=== PATIENT | female | born 1950 | race Caucasian/White ===

== ENCOUNTER 2017-12-13 09:55 | Inpatient (IN) ==
[2017-12-13] MEDS ORDERED: Ondansetron 4 MG/2 ML VIAL IVP ONE (10:12)
[2017-12-13] MEDS ORDERED: 0.9 % Sodium Chloride 1,000 ML IVC ONE (10:12)
[2017-12-13 10:43] LABS: Bilirubin,Urine Negative (Negative); Blood,Urine Negative (Negative); Color,Urine Yellow (Yellow); Glucose,Urine (UA) Normal (Normal); Ketones,Urine Negative (Negative); Leukocyte Esterase,Urine Large (Negative); Nitrite,Urine Negative (Negative); Protein,Urine Negative (Neg-Trace); Urobilinogen,Urine Normal (Normal)
[2017-12-13 10:45] LABS: Bacteria,Urine None Seen per hpf (None-Few); Clarity,Urine Clear (Clear); Hyaline Casts,Urine None Seen per lpf (None-Few); RBC,Urine 0-3 per hpf (0-3); Squamous Epithelial Cell,Urine Moderate per lpf (None-Few); WBC,Urine TNTC per hpf (0-3)
--- NOTE | 2017-12-13 10:52 | Emergency Department Note ---
Disposition Clinical Impression: Urinary tract infection Qualifiers: Urinary tract infection type: acute cystitis Hematuria presence: without hematuria Qualified Code(s): N30.00 - Acute cystitis without hematuria Disposition: Admitted As Inpatient Condition: Good General Adult HPI - General Chief complaint: ED Abdominal Pain Stated complaint: "UTI, needs PICC and US" Time Seen by Provider: 12/13/17 10:07 Source: other (Caregiver [facility]) Limitations: language barrier, altered mental status (MR), physical limitation Nursing Notes Reviewed: Yes Vital Signs Reviewed: Yes - History of Present Illness Pt Subjective Complaint: Patient is non-verbal - MR - Hx given by caregiver. UTI , needs IVABX Onset (ago): day(s) Location: other (Patient sometimes cries out when urinating per caregiver) Radiation: other (unable to describe) Pain Severity: moderate ("Cries out at times, not sure how to quantify pain") Pain Scale: 0 (on faces pain scale) Quality: other (unable to describe) Consistency: intermittent Improves with: nothing Worsens with: other (urination) Associated symptoms: Denies: diaphoresis, malaise, nausea/vomiting, rash, seizure, shortness of breath, syncope, weakness Treatments Prior to Arrival: other (was seen at Urgent Care and was given Macrobid. Culture results show Providencii Stuarti) - Related Data Home Medications Medication Instructions Recorded Confirmed Acetaminophen [Tylenol] 1,000 mg PO Q4H PRN 02/01/16 12/13/17 Amlodipine Besylate 10 mg PO DAILY 02/01/16 12/13/17 Bismuth Subsalicylate 15 ml PO Q4H PRN 02/01/16 12/13/17 [Pepto-Bismol] Chloraseptic [place] [Chloraseptic] 1 spray MM QID PRN 02/01/16 12/13/17 Cholecalciferol (D-3) [Vitamin D] 2,000 unit PO DAILY 02/01/16 12/13/17 LevETIRAcetam [Roweepra] 500 mg PO Q12H 02/01/16 12/13/17 Levothyroxine [Synthroid] 25 mcg PO 0630 02/01/16 12/13/17 Loperamide HCl [Imodium A-D] 2 mg PO AD PRN MDD 6 CAP/ 24 HOURS 02/01/16 Magnesium Hydroxide [Milk of 30 ml PO DAILY PRN 02/01/16 12/13/17 Magnesia] Osmar/Poly/Chayito OINT [Triple 1 appl TP TID PRN 02/01/16 12/13/17 Antibiotic Ointment] Paliperidone [Invega] 3 mg PO DAILY 02/01/16 12/13/17 Propranolol [Inderal] 20 mg PO TID 02/01/16 12/13/17 Raloxifene [Evista] 60 mg PO DAILY 02/01/16 12/13/17 Ranitidine HCl [Zantac] 300 mg PO HS 02/01/16 12/13/17 Vitamin E 400 unit PO DAILY 02/01/16 12/13/17 cloNIDine HCl [CloNIDine HCl] 0.1 mg PO BID 02/01/16 12/13/17 rOPINIRole [Requip] 1 mg PO BID 02/01/16 12/13/17 Aspirin [Lo-Dose Aspirin EC] 81 mg PO DAILY 10/07/17 12/13/17 Calcium Carbonate [Calcium] 500 mg PO BID 12/13/17 12/13/17 Docusate [Colace] 100 mg PO DAILY 12/13/17 12/13/17 GuaiFENesin/Dextromethorphan 5 ml PO Q4H PRN 12/13/17 12/13/17 [Children's Mucinex Cough Liq] Lisinopril [Zestril] 10 mg PO DAILY 12/13/17 12/13/17 Perphenazine [Trilafon] 2 mg PO 0800,1600,199912/13/17 12/13/17 Allergies Allergy/AdvReac Type Severity Reaction Status Date / Time Penicillins Allergy Hives Verified 12/13/17 12:07 potassium [From Potassimin] Allergy Hives Verified 12/13/17 12:07 Limitations: ROS unobtainable due to patients medical condition Past Medical History - Past Medical History Attestation: Yes The following information was validated with the patient. Source: patient Medical history: Reports: non-contributory, GERD, hypertension, osteoporosis, seizures, thyroid disease Surgical history: Reports: no surgical history, non-contributory Psychiatric history: Reports: anxiety, depression, other - Social History Smoking Status: Never smoker Smokeless Tobacco Status: No Alcohol use: Reports: none Drug use: Reports: none Physical Exam - General Limitations: other (MR) General appearance: alert, in no apparent distress - Head Head exam: atraumatic, normal inspection - Eye Eye exam: Present: normal appearance, PERRL. Absent: scleral icterus, conjunctival injection, periorbital swelling - ENT ENT exam: mucous membranes dry - Neck Neck exam: Present: normal inspection. Absent: meningismus - Respiratory Respiratory exam: Absent: respiratory distress - Cardiovascular Cardiovascular exam: Present: regular rate, normal rhythm, normal heart sounds - Abdominal Exam Abdominal exam: Present: soft, Non-Tender - Extremities Exam Extremities exam: Present: normal inspection, normal capillary refill. Absent: pedal edema - Expanded Lower Extremity Exam Gait: observed and normal - Neurological Exam Neurological exam: Present: alert, oriented X3, CN II-XII intact, normal gait - Psychiatric Psychiatric exam: Present: normal affect, normal mood - Skin Skin exam: Present: warm, dry, intact, normal color Course Course Narrative: Patient [facility] for PICC line and parenteral ABX to treat a UTI. Per caregiver patient had symptoms of dysuria and "foul smelling urine". She was seen in the Urgent Care on 12/09 and was given Macrobid. Caregiver was called today and told to bring patient to ED for "Picc line and IV ABX". She states that the patient has not been acting different aside from fatigue and increased sleeping. No report of vomiting or fever. Culture shows multi drug resistant organism. Patient is allergic to PCN. Labs and fluids ordered. PICC team consulted. Case discussed with Dr. Bowden. He has had face to face time with the patient and agrees with the assessment and plan. Labs show many bacteria and WBCs in urine - this was a catheterized sample. CBC normal, but WBC count is higher than usual at 10. 11:50 Hospitalist has been paged - Consultations Consultation #1: Discussed ABX choice with Pharmacy due to patient's non-verbal status and listed allergy of PCN. Pharmacist Tim recommends ertapenem. Time: 10:31 Vital Signs Temperature 98.8 F 12/13/17 09:58 Pulse Rate 76 12/13/17 09:58 Respiratory Rate 20 12/13/17 09:58 Blood Pressure 133/67 12/13/17 09:58 O2 Sat by Pulse Oximetry 98 12/13/17 09:58 Temperature 97.3 F L 12/13/17 15:21 Pulse Rate 82 12/13/17 15:21 Respiratory Rate 16 12/13/17 15:21 Blood Pressure 164/80 12/13/17 15:21 O2 Sat by Pulse Oximetry 93 12/13/17 13:06 Oxygen Delivery Oxygen Delivery Room Air Medical Decision Making - Medical Records Medical records reviewed: Yes I reviewed the patient's medical records. - Lab Data Lab results reviewed: Yes I reviewed the patient's lab results. Lab results narrative: Laboratory Last Values WBC 10.4 K/mcL (4.3-11.1) 12/13/17 11:01 RBC 3.43 M/mcL (3.82-4.97) L 12/13/17 11:01 Hgb 10.2 g/dL (11.5-15.4) L 12/13/17 11:01 Hct 30.7 % (35.3-44.9) L 12/13/17 11:01 MCV 89.5 fL (83.0-100.0) 12/13/17 11:01 MCH 29.7 pg (28.0-33.3) 12/13/17 11:01 MCHC 33.2 g/dL (31.6-35.5) 12/13/17 11:01 RDW 14.0 % (11.5-14.5) 12/13/17 11:01 Plt Count 148 K/mcL (140-400) 12/13/17 11:01 MPV 11.0 fL (9.4-12.4) 12/13/17 11:01 Immature Gran % 0.3 % (0-4) 12/13/17 11:01 Seg Neutrophils % 76.9 % 12/13/17 11:01 Lymphocytes % 9.7 % 12/13/17 11:01 Monocytes % 6.6 % 12/13/17 11:01 Eosinophils % 6.3 % 12/13/17 11:01 Basophils % 0.2 % 12/13/17 11:01 Neutrophils # 8.0 K/mcL (1.6-8.9) 12/13/17 11:01 Lymphocytes # 1.0 K/mcL (0.6-4.6) 12/13/17 11:01 Monocytes # 0.7 K/mcL (0.0-1.3) 12/13/17 11:01 Eosinophils # 0.7 K/mcL (0.0-0.6) H 12/13/17 11:01 Basophils # 0.0 K/mcL (0.0-0.2) 12/13/17 11:01 Sodium 139 mEq/L (136-145) 12/13/17 11:01 Potassium 3.6 mEq/L (3.5-5.1) 12/13/17 11:01 Chloride 104 mEq/L (98-107) 12/13/17 11:01 Carbon Dioxide 28 mEq/L (23-29) 12/13/17 11:01 BUN 19 mg/dL (8-23) 12/13/17 11:01 Creatinine 0.90 mg/dL (0.60-1.20) 12/13/17 11:01 Est GFR ( Amer) > 60 (> 60) 12/13/17 11:01 Est GFR (Non-Af Amer) > 60 (> 60) 12/13/17 11:01 BUN/Creatinine Ratio 21 (6-26) 12/13/17 11:01 Glucose 105 mg/dL (70-105) 12/13/17 11:01 Calculated Osmolality 291 (280-300) 12/13/17 11:01 Lactic Acid 0.9 mmol/L (0.5-2.2) 12/13/17 11:01 Calcium 9.1 mg/dL (8.6-10.3) 12/13/17 11:01 Urine Color Yellow (Yellow) 12/13/17 10:36 Urine Clarity Clear (Clear) 12/13/17 10:36 Urine pH 6.0 pH Units (5.0-8.0) 12/13/17 10:36 Ur Specific [place] 1.020 (1.010-1.025) 12/13/17 10:36 Urine Protein Negative mg/dL (Neg-Trace) 12/13/17 10:36 Urine Glucose (UA) Normal mg/dL (Normal) 12/13/17 10:36 Urine Ketones Negative mg/dL (Negative) 12/13/17 10:36 Urine Blood Negative (Negative) 12/13/17 10:36 Urine Nitrite Negative (Negative) 12/13/17 10:36 Urine Bilirubin Negative (Negative) 12/13/17 10:36 Urine Urobilinogen Normal mg/dL (Normal) 12/13/17 10:36 Ur Leukocyte Esterase Large (Negative) H 12/13/17 10:36 Urine Microscopic RBC 0-3 per hpf (0-3) 12/13/17 10:36 Urine Microscopic WBC TNTC per hpf (0-3) H 12/13/17 10:36 Ur Squamous Epith Cells Moderate per lpf (None-Few) H 12/13/17 10:36 Urine Bacteria None Seen per hpf (None-Few) 12/13/17 10:36 Hyaline Casts None Seen per lpf (None-Few) 12/13/17 10:36 Ur Culture Indicated? YES (NO) A 12/13/17 10:36 Result diagrams: 12/13/17 11:01 12/13/17 11:01 Lab Results 12/13/17 12/13/17 12/13/17 Range/Units 10:36 11:01 11:01 WBC 10.4 (4.3-11.1) K/mcL RBC 3.43 L (3.82-4.97) M/mcL Hgb 10.2 L (11.5-15.4) g/dL Hct 30.7 L (35.3-44.9) % MCV 89.5 (83.0-100.0) fL MCH 29.7 (28.0-33.3) pg MCHC 33.2 (31.6-35.5) g/dL RDW 14.0 (11.5-14.5) % Plt Count 148 (140-400) K/mcL MPV 11.0 (9.4-12.4) fL Immature Gran % 0.3 (0-4) % Seg Neutrophils % 76.9 % Lymphocytes % 9.7 % Monocytes % 6.6 % Eosinophils % 6.3 % Basophils % 0.2 % Neutrophils # 8.0 (1.6-8.9) K/mcL Lymphocytes # 1.0 (0.6-4.6) K/mcL Monocytes # 0.7 (0.0-1.3) K/mcL Eosinophils # 0.7 H (0.0-0.6) K/mcL Basophils # 0.0 (0.0-0.2) K/mcL Sodium 139 (136-145) mEq/L Potassium 3.6 (3.5-5.1) mEq/L Chloride 104 (98-107) mEq/L Carbon Dioxide 28 (23-29) mEq/L BUN 19 (8-23) mg/dL Creatinine 0.90 (0.60-1.20) mg/dL Est GFR ( Amer) > 60 (> 60) Est GFR (Non-Af Amer) > 60 (> 60) BUN/Creatinine Ratio 21 (6-26) Glucose 105 (70-105) mg/dL Calculated Osmolality 291 (280-300) Lactic Acid (0.5-2.2) mmol/L Calcium 9.1 (8.6-10.3) mg/dL Urine Color Yellow (Yellow) Urine Clarity Clear (Clear) Urine pH 6.0 (5.0-8.0) pH Units Ur Specific [place] 1.020 (1.010-1.025) Urine Protein Negative (Neg-Trace) mg/dL Urine Glucose (UA) Normal (Normal) mg/dL Urine Ketones Negative (Negative) mg/dL Urine Blood Negative (Negative) Urine Nitrite Negative (Negative) Urine Bilirubin Negative (Negative) Urine Urobilinogen Normal (Normal) mg/dL Ur Leukocyte Esterase Large H (Negative) Urine Microscopic RBC 0-3 (0-3) per hpf Urine Microscopic WBC TNTC H (0-3) per hpf Ur Squamous Epith Cells Moderate H (None-Few) per lpf Urine Bacteria None Seen (None-Few) per hpf Hyaline Casts None Seen (None-Few) per lpf Ur Culture Indicated? YES A (NO) 12/13/17 Range/Units 11:01 WBC (4.3-11.1) K/mcL RBC (3.82-4.97) M/mcL Hgb (11.5-15.4) g/dL Hct (35.3-44.9) % MCV (83.0-100.0) fL MCH (28.0-33.3) pg MCHC (31.6-35.5) g/dL RDW (11.5-14.5) % Plt Count (140-400) K/mcL MPV (9.4-12.4) fL Immature Gran % (0-4) % Seg Neutrophils % % Lymphocytes % % Monocytes % % Eosinophils % % Basophils % % Neutrophils # (1.6-8.9) K/mcL Lymphocytes # (0.6-4.6) K/mcL Monocytes # (0.0-1.3) K/mcL Eosinophils # (0.0-0.6) K/mcL Basophils # (0.0-0.2) K/mcL Sodium (136-145) mEq/L Potassium (3.5-5.1) mEq/L Chloride (98-107) mEq/L Carbon Dioxide (23-29) mEq/L BUN (8-23) mg/dL Creatinine (0.60-1.20) mg/dL Est GFR ( Amer) (> 60) Est GFR (Non-Af Amer) (> 60) BUN/Creatinine Ratio (6-26) Glucose (70-105) mg/dL Calculated Osmolality (280-300) Lactic Acid 0.9 (0.5-2.2) mmol/L Calcium (8.6-10.3) mg/dL Urine Color (Yellow) Urine Clarity (Clear) Urine pH (5.0-8.0) pH Units Ur Specific [place] (1.010-1.025) Urine Protein (Neg-Trace) mg/dL Urine Glucose (UA) (Normal) mg/dL Urine Ketones (Negative) mg/dL Urine Blood (Negative) Urine Nitrite (Negative) Urine Bilirubin (Negative) Urine Urobilinogen (Normal) mg/dL Ur Leukocyte Esterase (Negative) Urine Microscopic RBC (0-3) per hpf Urine Microscopic WBC (0-3) per hpf Ur Squamous Epith Cells (None-Few) per lpf Urine Bacteria (None-Few) per hpf Hyaline Casts (None-Few) per lpf Ur Culture Indicated? (NO)
[2017-12-13 11:28] LABS: Basophils % 0.2 %; Eosinophils # 0.7 K/mcL (0.0-0.6); Eosinophils % 6.3 %; Hematocrit 30.7 % (35.3-44.9); Hemoglobin 10.2 g/dL (11.5-15.4); Immature Granulocytes % 0.3 % (0-4); Lymphocytes % 9.7 %; Mean Corpuscular HGB Conc 33.2 g/dL (31.6-35.5); Mean Corpuscular Hemoglobin 29.7 pg (28.0-33.3); Mean Corpuscular Volume 89.5 fL (83.0-100.0); Monocytes # 0.7 K/mcL (0.0-1.3); Monocytes % 6.6 %; Platelet Count 148 K/mcL (140-400); Red Blood Count 3.43 M/mcL (3.82-4.97); Segmented Neutrophils % 76.9 %
[2017-12-13 11:41] LABS: BUN/Creatinine Ratio 21 (6-26); Blood Urea Nitrogen 19 mg/dL (8-23); Calcium 9.1 mg/dL (8.6-10.3); Carbon Dioxide 28 mEq/L (23-29); Chloride 104 mEq/L (98-107); Glucose 105 mg/dL (70-105); Osmolality,Calculated 291 (280-300); Potassium 3.6 mEq/L (3.5-5.1); Sodium 139 mEq/L (136-145); eGFR For Non-African Americans > 60 (> 60)
[2017-12-13] MEDS ORDERED: Ondansetron 4 MG/2 ML VIAL IVP PRN (12:29)
[2017-12-13] MEDS ORDERED: Naloxone 0.4 MG/ML INJ IVP PRN (12:29)
--- NOTE | 2017-12-13 12:43 | Internal Med History&Physical ---
Date of Encounter: 12/13/17 Time of Encounter: 11:30 Internal Medicine - H&P: HPI Chief complaint: Resistant bactereia in UA Admitted From: Long-term Nursing Facility Plans for Post Hospital Care: Transfer Assisted Care History of present illness: Ms. Li is a 67 year old female sent to ER from long term for UTI with urine culture positive and need iv Abx. Patient is nonverbal and no transfer documentation available at this point. Past medical history is unknown. Patient is nonverbal. History is obtained from ER documentation and previous chart. Patient was found foul-smelling urine and was diagnosed as UTI. Urine culture was sent 3 days ago. Results come back shows Providencia Stuartii, resistant to multiple abx. Patient needs IV antibiotics. Patient was sent to ER and admitted for further treatment. In the emergency room, patient's vital signs stable, no fever. Difficult to get CODE STATUS. Waiting for long term documentation for CODE STATUS. Past Med Surg Social Fam HX - Past Medical History Medical history: non-contributory, GERD, hypertension, osteoporosis, seizures, thyroid disease Additional medical history: tardive dyskinesia Psychiatric history: anxiety, depression, other - Past Surgical History Surgical History: no surgical history, non-contributory Additional surgical history: FX RT ANKLE, cataract sx. - Social History Smoking Status: Never smoker Smokeless Tobacco Status: No Alcohol use: none Drug use: none - Family History Mother History Unknown: Yes Internal Medicine - H&P: Meds Acetaminophen [Tylenol] 1,000 mg PO Q4H PRN 02/01/16 [History] Amlodipine Besylate 10 mg PO DAILY 02/01/16 [History] Bismuth Subsalicylate [Pepto-Bismol] 15 ml PO Q4H PRN 02/01/16 [History] Chloraseptic [place] [Chloraseptic] 1 spray MM QID PRN 02/01/16 [History] Cholecalciferol (D-3) [Vitamin D] 2,000 unit PO DAILY 02/01/16 [History] LevETIRAcetam [Roweepra] 500 mg PO Q12H 02/01/16 [History] Levothyroxine [Synthroid] 25 mcg PO 0630 02/01/16 [History] Loperamide HCl [Imodium A-D] 2 mg PO AD PRN MDD 6 CAP/ 24 HOURS 02/01/16 [ History] Magnesium Hydroxide [Milk of Magnesia] 30 ml PO DAILY PRN 02/01/16 [History] Osmar/Poly/Chayito OINT [Triple Antibiotic Ointment] 1 appl TP TID PRN 02/01/16 [ History] Paliperidone [Invega] 3 mg PO DAILY 02/01/16 [History] Propranolol [Inderal] 20 mg PO TID 02/01/16 [History] Raloxifene [Evista] 60 mg PO DAILY 02/01/16 [History] Ranitidine HCl [Zantac] 300 mg PO HS 02/01/16 [History] Vitamin E 400 unit PO DAILY 02/01/16 [History] cloNIDine HCl [CloNIDine HCl] 0.1 mg PO BID 02/01/16 [History] rOPINIRole [Requip] 1 mg PO BID 02/01/16 [History] Aspirin [Lo-Dose Aspirin EC] 81 mg PO DAILY 10/07/17 [History] Calcium Carbonate [Calcium] 500 mg PO BID 12/13/17 [History] Docusate [Colace] 100 mg PO DAILY 12/13/17 [History] GuaiFENesin/Dextromethorphan [Children's Mucinex Cough Liq] 5 ml PO Q4H PRN [History] Lisinopril [Zestril] 10 mg PO DAILY 12/13/17 [History] Perphenazine [Trilafon] 2 mg PO 0800,1600,2000 12/13/17 [History] 3 Allergy/AdvReac Type Severity Reaction Status Date / Time Penicillins Allergy Hives Verified 12/13/17 12:07 potassium [From Potassimin] Allergy Hives Verified 12/13/17 12:07 All Systems PM: A 10-system review of systems was performed and is negative for pertinent findings except as documented above in the HPI. - Constitutional Vitals: Temp Pulse Resp BP Pulse Ox 98.8 F 60 18 114/72 98 12/13/17 10:31 12/13/17 12:00 12/13/17 12:00 12/13/17 12:00 12/13/17 12:00 General appearance: Present: A&O X 0, pleasant, no acute distress - Head Head exam: Present: atraumatic, normocephalic - Eye Eye exam: Present: PERRL, conjuntiva pink, sclera anicteric Pupils: Present: PERRL - Neck Neck exam general surgery: Present: supple, trachea midline. Absent: lymphadenopathy - Respiratory Respiratory exam: Present: CTAB. Absent: accessory muscle use, rales, rhonchi, wheezes - Cardiovascular Cardiovascular exam: Present: RRR, +S1, +S2. Absent: diastolic murmur, gallop, rubs, systolic murmur - GI/Abdominal GI/Abdominal exam: Present: distended, normal bowel sounds, soft, no peritoneal signs. Absent: tenderness - Extremities Exam Extremities exam: Present: warm, radial pulses palpable and symmetrical. Absent : calf tenderness, cyanotic, pedal edema - Neurological Exam Neurological exam: Present: alert, CN II-XII intact, no focal deficits. Absent : pronater drift, facial droop, speech deficit - Skin Skin exam: Present: dry, intact Internal Med - H&P Results - Labs CBC & Chem 7: 12/13/17 11:01 12/13/17 11:01 Labs: Short CBC 12/13/17 Range/Units 11:01 WBC 10.4 (4.3-11.1) K/mcL Hgb 10.2 L (11.5-15.4) g/dL Hct 30.7 L (35.3-44.9) % Plt Count 148 (140-400) K/mcL Neutrophils # 8.0 (1.6-8.9) K/mcL BMP 12/13/17 11:01 Sodium 139 Potassium 3.6 Chloride 104 Carbon Dioxide 28 BUN 19 Creatinine 0.90 Glucose 105 Calcium 9.1 Urine 12/13/17 Range/Units 10:36 Urine Color Yellow (Yellow) Urine Clarity Clear (Clear) Urine pH 6.0 (5.0-8.0) pH Units Ur Specific [place] 1.020 (1.010-1.025) Urine Protein Negative (Neg-Trace) mg/dL Urine Glucose (UA) Normal (Normal) mg/dL - Assessment and plan (1) DVT prophylaxis Current Visit: Yes Status: Acute Assessment and plan: EPCDs (2) Urinary tract infection Current Visit: No Status: Acute Assessment and plan: Patient has a urine culture positive. Resistant to multiple antibiotics. Hemodynamically stable. - Place patient on ertapenem iv per sensitivity - Blood culture send from ER - Patient is nonverbal, probably it is her baseline mental status. Will consult speech therapy to determine diet. Aspiration precautions. Qualifiers: Urinary tract infection type: acute cystitis Hematuria presence: without hematuria Qualified Code(s): N30.00 - Acute cystitis without hematuria - Time Spent With Patient Total time spent is greater than 50% in coordination of care (as documented) at patient's floor/unit and/or counseling patient: 30 minutes 25 - 35 minutes
[2017-12-13] MEDS ORDERED: Ertapenem 1,000 MG in 0.9 % Sodium Chloride Mini Bag 100 ML IVPB ONE (13:00)
[2017-12-13] MEDS: 0.9 % Sodium Chloride 1,000 ML IVC SCH (17:51)
[2017-12-14 05:51] LABS: Basophils % 0.3 %; Eosinophils # 0.6 K/mcL (0.0-0.6); Eosinophils % 8.9 %; Hematocrit 31.6 % (35.3-44.9); Hemoglobin 10.4 g/dL (11.5-15.4); Immature Granulocytes % 0.4 % (0-4); Lymphocytes # 1.2 K/mcL (0.6-4.6); Lymphocytes % 16.7 %; Mean Corpuscular HGB Conc 32.9 g/dL (31.6-35.5); Mean Corpuscular Volume 91.1 fL (83.0-100.0); Mean Platelet Volume 11.4 fL (9.4-12.4); Monocytes # 0.6 K/mcL (0.0-1.3); Monocytes % 8.3 %; Neutrophils # 4.5 K/mcL (1.6-8.9); Platelet Count 150 K/mcL (140-400); Red Blood Count 3.47 M/mcL (3.82-4.97); Red Cell Distribution Width 13.8 % (11.5-14.5); Segmented Neutrophils % 65.4 %
[2017-12-14 07:20] LABS: BUN/Creatinine Ratio 16 (6-26); Blood Urea Nitrogen 13 mg/dL (8-23); Calcium 8.3 mg/dL (8.6-10.3); Carbon Dioxide 24 mEq/L (23-29); Chloride 110 mEq/L (98-107); Glucose 102 mg/dL (70-105); Osmolality,Calculated 292 (280-300); Potassium 3.7 mEq/L (3.5-5.1); Sodium 141 mEq/L (136-145); eGFR For Non-African Americans > 60 (> 60)
[2017-12-14] MEDS ORDERED: 0.9 % Sodium Chloride 1,000 ML ONE (11:40)
[2017-12-14] MEDS: 0.9 % Sodium Chloride 1,000 ML IVC SCH ×2 (11:41→17:38)
[2017-12-14] MEDS: cefTRIAXone 2,000 MG in Water for inj. (sterile) 20 ML 20 ML IVP SCH (11:42)
--- NOTE | 2017-12-14 15:50 | Internal Med Progress Note ---
Date of Encounter: 12/14/17 Time of Encounter: 09:10 - Assessment and plan (1) Urinary tract infection Current Visit: Yes Status: Acute Assessment and plan: UTI, present on admission, h/o multidrug resistance Initially started on IV Invanz. Cultures positive for Providencia stuartii Sensitive to Ceftriaxone. Continue IV Rocephin 2 g daily Repeat labs in a.m., monitor closely Anticipated discharge to SNF in 24-48 hours Patient is nonverbal at baseline. ST has evaluated patient, recommends honey thick liquids. Continue aspiration precautions. Qualifiers: Urinary tract infection type: acute cystitis Hematuria presence: without hematuria Qualified Code(s): N30.00 - Acute cystitis without hematuria (2) Essential hypertension Current Visit: Yes Status: Chronic Assessment and plan: Essential hypertension, controlled, monitor closely Continue home dose of Zestril, clonidine, propranolol, Norvasc (3) Seizure disorder Current Visit: Yes Status: Chronic Assessment and plan: Seizure disorder, stable Continue home dose of Keppra (4) DVT prophylaxis Current Visit: Yes Status: Acute Assessment and plan: Continue SCDs. - Time Spent With Patient 25 - 35 minutes - Subjective Interval history: Examined this morning. Patient is awake. She is nonverbal at baseline. She is unable to provide any history. No family members at bedside. Patient does have a low-grade fever. She is hemodynamically stable. ST has evaluated patient, recommend nectar thickened diet. Admitted for UTI, present on admission. Previous culture results positive for Providencia stuartii. Initially started on IV Invanz. Culture results reveal sensitive to Rocephin. Continue IV Rocephin 2 g daily. Anticipate discharge to SNF in 24-48 hours. - Constitutional Vitals: Temp Pulse Resp BP Pulse Ox 100.3 F H 99 18 184/94 93 12/14/17 12:06 12/14/17 12:06 12/14/17 12:06 12/14/17 12:06 12/14/17 12:06 General appearance: Present: A&O X 0, pleasant, no acute distress Exam: Nonverbal at baseline. - Head Head exam: Present: atraumatic - Eye Eye exam: Present: PERRL - ENT ENT exam: Present: mucous membranes dry - Neck Neck exam general surgery: Present: supple - Respiratory Respiratory exam: Present: decreased breath sounds (Slightly decreased in both bases, otherwise clear to auscultation) - Cardiovascular Cardiovascular exam: Present: RRR, +S1, +S2 - GI/Abdominal GI/Abdominal exam: Present: soft, no peritoneal signs. Absent: distended, guarding, tenderness - Extremities Exam Extremities exam: Present: pedal edema (Mild bilateral). Absent: calf tenderness - Neurological Exam Additional comments: Patient is awake. Nonverbal at baseline. Does not follow verbal commands. Seems to be at baseline state. Internal Medicine: Result - Labs CBC & Chem 7: 12/14/17 05:09 12/14/17 05:09 Labs: Short CBC 12/14/17 Range/Units 05:09 WBC 6.9 (4.3-11.1) K/mcL Hgb 10.4 L (11.5-15.4) g/dL Hct 31.6 L (35.3-44.9) % Plt Count 150 (140-400) K/mcL Neutrophils # 4.5 (1.6-8.9) K/mcL BMP 12/14/17 05:09 Sodium 141 Potassium 3.7 Chloride 110 H Carbon Dioxide 24 BUN 13 Creatinine 0.80 Glucose 102 Calcium 8.3 L - VTE Documentation of Mechanical Device: Intermittent pneumatic compression device Consult Discharge Plan - Plan Referrals: Virgilio Delong MD [Primary Care Provider] -
[2017-12-14] MEDS ORDERED: Chloraseptic Spray 177 ML BOTTLE MM PRN (15:52)
[2017-12-14] MEDS ORDERED: levETIRAcetam 250 MG TABLET PO SCH (16:00)
[2017-12-14] MEDS ORDERED: *HR* Labetalol 20 MG/4 ML SYRINGE IVP PRN (16:55)
[2017-12-14] MEDS: Perphenazine 2 MG TABLET PO SCH ×2 (17:37→18:00)
[2017-12-14] MEDS: Aspirin Enteric Coated 81 MG Tablet PO SCH (17:37)
[2017-12-14] MEDS: levETIRAcetam 500 MG/5 ML UDC PO SCH (17:37)
[2017-12-14] MEDS: rOPINIRole 1 MG TABLET PO SCH (21:01)
[2017-12-14] MEDS: cloNIDine HCl 0.1 MG TABLET PO SCH (21:01)
[2017-12-14] MEDS: Famotidine 20 MG TABLET PO SCH (21:01)
[2017-12-15 04:11] LABS: Basophils % 0.1 %; Eosinophils # 0.7 K/mcL (0.0-0.6); Eosinophils % 8.5 %; Hematocrit 30.1 % (35.3-44.9); Immature Granulocytes % 0.4 % (0-4); Lymphocytes # 1.9 K/mcL (0.6-4.6); Lymphocytes % 25.1 %; Mean Corpuscular HGB Conc 33.2 g/dL (31.6-35.5); Mean Corpuscular Hemoglobin 30.1 pg (28.0-33.3); Mean Corpuscular Volume 90.7 fL (83.0-100.0); Mean Platelet Volume 10.8 fL (9.4-12.4); Monocytes # 0.7 K/mcL (0.0-1.3); Monocytes % 9.3 %; Neutrophils # 4.3 K/mcL (1.6-8.9); Platelet Count 150 K/mcL (140-400); Red Blood Count 3.32 M/mcL (3.82-4.97); Red Cell Distribution Width 13.7 % (11.5-14.5); Segmented Neutrophils % 56.6 %
[2017-12-15] MEDS: 0.9 % Sodium Chloride 1,000 ML IVC SCH ×2 (04:23→15:18)
[2017-12-15 04:31] LABS: Alanine Aminotransferase 12 Units/L (7-52); Albumin 3.4 g/dL (3.5-5.7); Albumin/Globulin Ratio 1.2 (1.1-2.2); Alkaline Phosphatase 37 Units/L (34-104); Aspartate Amino Transferase 14 Units/L (13-39); BUN/Creatinine Ratio 16 (6-26); Bilirubin,Total 0.4 mg/dL (0.3-1.0); Blood Urea Nitrogen 12 mg/dL (8-23); Calcium 8.4 mg/dL (8.6-10.3); Carbon Dioxide 23 mEq/L (23-29); Chloride 111 mEq/L (98-107); Globulin 2.8 g/dL (2.4-3.5); Glucose 107 mg/dL (70-105); Osmolality,Calculated 290 (280-300); Potassium 3.8 mEq/L (3.5-5.1); Sodium 140 mEq/L (136-145); Total Protein 6.2 g/dL (6.4-8.9); eGFR For Non-African Americans > 60 (> 60)
[2017-12-15] MEDS: levETIRAcetam 500 MG/5 ML UDC PO SCH ×3 (04:36→15:02)
[2017-12-15] MEDS: Levothyroxine 25 MCG TABLET PO SCH (06:16)
[2017-12-15] MEDS: amLODIPine 5 MG TABLET PO SCH (08:55)
[2017-12-15] MEDS: Perphenazine 2 MG TABLET PO SCH ×3 (08:55→22:38)
[2017-12-15] MEDS: Aspirin Enteric Coated 81 MG Tablet PO SCH (08:56)
[2017-12-15] MEDS: cloNIDine HCl 0.1 MG TABLET PO SCH ×2 (08:57→22:26)
[2017-12-15] MEDS: rOPINIRole 1 MG TABLET PO SCH ×2 (08:57→22:26)
[2017-12-15] MEDS: cefTRIAXone 2,000 MG in Water for inj. (sterile) 20 ML 20 ML IVP SCH (11:14)
[2017-12-15] MEDS: Acetaminophen 325 MG TABLET PO PRN (15:15)
[2017-12-15] MEDS: Cholecalciferol (D-3) 1,000 UNIT TABLET PO SCH (15:16)
--- NOTE | 2017-12-15 16:28 | Internal Med Progress Note ---
Date of Encounter: 12/15/17 Time of Encounter: 09:30 - Assessment and plan (1) Urinary tract infection Current Visit: Yes Status: Acute Assessment and plan: UTI, present on admission, h/o multidrug resistance - slowly improving Initially started on IV Invanz. Cultures positive for Providencia stuartii Sensitive to Ceftriaxone. Continue IV Rocephin 2 g daily Repeat labs in a.m., monitor closely Patient is nonverbal at baseline. ST has evaluated patient, recommends honey thick liquids. Continue aspiration precautions. Anticipate discharge to SNF in 48 hours Qualifiers: Urinary tract infection type: acute cystitis Hematuria presence: without hematuria Qualified Code(s): N30.00 - Acute cystitis without hematuria (2) Essential hypertension Current Visit: Yes Status: Chronic Assessment and plan: Essential hypertension, controlled, monitor closely Continue home dose of Zestril, Clonidine, Propranolol, Norvasc (3) Seizure disorder Current Visit: Yes Status: Chronic Assessment and plan: Seizure disorder, stable Continue home dose of Keppra (4) Nonverbal Current Visit: Yes Status: Chronic Assessment and plan: Patient is nonverbal at baseline. Unclear if this is due to CVA. Patient is also on Invega, Trilafon at home Patient has been evaluated by speech therapy. Recommends nectar thick liquids. Patient is tolerating oral diet. (5) DVT prophylaxis Current Visit: Yes Status: Acute Assessment and plan: Continue SCDs - Time Spent With Patient 25 - 35 minutes - Subjective Interval history: Examined this morning. Patient is awake. Nonverbal at baseline. She is unable to provide any history. No family members at bedside. No fever. Hemodynamically stable. ST has evaluated patient, recommend nectar thickened diet. Tolerating oral diet now. No other acute complaints. Admitted for UTI, present on admission. Previous culture results positive for Providencia stuartii. Initially started on IV Invanz. Culture results reveal sensitivity to Rocephin. Continue IV Rocephin 2 g daily. Anticipate discharge to SNF in about 48 hours. - Constitutional Vitals: Temp Pulse Resp BP Pulse Ox 98.2 F 74 14 155/71 91 12/15/17 15:12 12/15/17 15:12 12/15/17 15:12 12/15/17 15:12 12/15/17 15:12 General appearance: Present: A&O X 0, pleasant, no acute distress Exam: Generalized weakness. Nonverbal at baseline. Unable to provide any history. - Head Head exam: Present: atraumatic - Eye Eye exam: Present: PERRL - ENT ENT exam: Present: mucous membranes dry - Respiratory Respiratory exam: Present: decreased breath sounds (Slightly decreased in the bases, otherwise clear to auscultation) - Cardiovascular Cardiovascular exam: Present: RRR, +S1, +S2 - GI/Abdominal GI/Abdominal exam: Present: soft, no peritoneal signs. Absent: distended, firm , guarding, tenderness - Extremities Exam Extremities exam: Present: pedal edema (Mild bilateral). Absent: calf tenderness, tenderness - Neurological Exam Additional comments: Awake. Nonverbal at baseline. Seems to be at baseline state. Does not follow verbal commands. Internal Medicine: Result - Labs CBC & Chem 7: 12/15/17 04:00 12/15/17 04:00 Labs: Short CBC 12/15/17 Range/Units 04:00 WBC 7.7 (4.3-11.1) K/mcL Hgb 10.0 L (11.5-15.4) g/dL Hct 30.1 L (35.3-44.9) % Plt Count 150 (140-400) K/mcL Neutrophils # 4.3 (1.6-8.9) K/mcL BMP 12/15/17 04:00 Sodium 140 Potassium 3.8 Chloride 111 H Carbon Dioxide 23 BUN 12 Creatinine 0.74 Glucose 107 H Calcium 8.4 L Liver Function 12/15/17 Range/Units 04:00 Total Bilirubin 0.4 (0.3-1.0) mg/dL AST 14 (13-39) Units/L ALT 12 (7-52) Units/L Alkaline Phosphatase 37 (34-104) Units/L Albumin 3.4 L (3.5-5.7) g/dL - VTE Documentation of Mechanical Device: Intermittent pneumatic compression device Consult Discharge Plan - Plan Referrals: Virgilio Delong MD [Primary Care Provider] -
[2017-12-15] MEDS: Famotidine 20 MG TABLET PO SCH (22:25)
[2017-12-16] MEDS: cloNIDine HCl 0.1 MG TABLET PO SCH ×3 (02:56→22:07)
[2017-12-16] MEDS: Famotidine 20 MG TABLET PO SCH ×2 (02:57→22:07)
[2017-12-16] MEDS: 0.9 % Sodium Chloride 1,000 ML IVC SCH ×2 (02:57→14:25)
[2017-12-16] MEDS: rOPINIRole 1 MG TABLET PO SCH ×3 (02:57→22:07)
[2017-12-16] MEDS: Acetaminophen 325 MG TABLET PO PRN (02:58)
[2017-12-16] MEDS: levETIRAcetam 500 MG/5 ML UDC PO SCH ×2 (05:34→16:23)
[2017-12-16] MEDS: Levothyroxine 25 MCG TABLET PO SCH (06:37)
[2017-12-16 08:18] LABS: Basophils % 0.2 %; Eosinophils # 0.6 K/mcL (0.0-0.6); Eosinophils % 6.8 %; Hematocrit 32.7 % (35.3-44.9); Hemoglobin 10.9 g/dL (11.5-15.4); Immature Granulocytes % 0.6 % (0-4); Lymphocytes # 1.5 K/mcL (0.6-4.6); Lymphocytes % 16.4 %; Mean Corpuscular HGB Conc 33.3 g/dL (31.6-35.5); Mean Corpuscular Volume 90.1 fL (83.0-100.0); Mean Platelet Volume 11.2 fL (9.4-12.4); Monocytes # 0.6 K/mcL (0.0-1.3); Neutrophils # 6.2 K/mcL (1.6-8.9); Platelet Count 178 K/mcL (140-400); Red Blood Count 3.63 M/mcL (3.82-4.97); Red Cell Distribution Width 13.4 % (11.5-14.5)
[2017-12-16 08:37] LABS: BUN/Creatinine Ratio 11 (6-26); Blood Urea Nitrogen 8 mg/dL (8-23); Calcium 8.8 mg/dL (8.6-10.3); Carbon Dioxide 23 mEq/L (23-29); Chloride 109 mEq/L (98-107); Glucose 119 mg/dL (70-105); Osmolality,Calculated 287 (280-300); Potassium 3.8 mEq/L (3.5-5.1); Sodium 139 mEq/L (136-145); eGFR For Non-African Americans > 60 (> 60)
[2017-12-16] MEDS: Perphenazine 2 MG TABLET PO SCH ×3 (10:44→22:07)
[2017-12-16] MEDS: Cholecalciferol (D-3) 1,000 UNIT TABLET PO SCH (10:45)
[2017-12-16] MEDS: Aspirin Enteric Coated 81 MG Tablet PO SCH (10:45)
[2017-12-16] MEDS: amLODIPine 5 MG TABLET PO SCH (10:45)
[2017-12-16] MEDS: cefTRIAXone 2,000 MG in Water for inj. (sterile) 20 ML 20 ML IVP SCH (10:46)
--- NOTE | 2017-12-16 11:50 | Internal Med Progress Note ---
Date of Encounter: 12/16/17 Time of Encounter: 08:50 - Assessment and plan (1) Urinary tract infection Current Visit: Yes Status: Acute Assessment and plan: UTI, present on admission, h/o multidrug resistance - slowly improving Initially started on IV Invanz. Cultures positive for Providencia stuartii Sensitive to Ceftriaxone. Continue IV Rocephin 2 g daily Repeat labs in a.m., monitor closely Patient is nonverbal at baseline. ST has evaluated patient, recommends honey thick liquids. Continue aspiration precautions. Anticipate discharge to SNF in 48 hours 12/16/2017: UTI, present on admission - with h/o multidrug resistance and recurrent UTIs - slowly improving Continue IV Rocephin 2 g daily. Patient can possibly be discharged on Omnicef Repeat labs in a.m., monitor closely Urine culture - Providencia stuartii UA - large leukocyte esterase Nonverbal at baseline. Continue nectar thick liquids. Aspiration precautions Anticipate discharge to SNF in 24-48 hrs. Qualifiers: Urinary tract infection type: acute cystitis Hematuria presence: without hematuria Qualified Code(s): N30.00 - Acute cystitis without hematuria (2) Essential hypertension Current Visit: Yes Status: Chronic Assessment and plan: Essential hypertension, controlled, monitor closely Continue home dose of Zestril, Clonidine, Propranolol, Norvasc (3) Seizure disorder Current Visit: Yes Status: Chronic Assessment and plan: Seizure disorder, stable Continue home dose of Keppra (4) Nonverbal Current Visit: Yes Status: Chronic Assessment and plan: Patient is nonverbal at baseline. Unclear if this is due to CVA. Patient is also on Invega, Trilafon at home Evaluated by ST. Recommends nectar thick liquids. Patient is tolerating oral diet (5) DVT prophylaxis Current Visit: Yes Status: Acute Assessment and plan: Continue SCDs - Time Spent With Patient 25 - 35 minutes - Subjective Interval history: Examined this morning. Patient is awake. Nonverbal at baseline. Unable to provide any history. No family members at bedside. No fever. Hemodynamically stable. ST recommends nectar thickened diet. Tolerating oral diet now. No other acute complaints. Seems more interactive this morning. Seems to be improving overall. Admitted for UTI, present on admission. Previous culture results positive for Providencia stuartii. Initially started on IV Invanz. Culture results reveal sensitivity to Rocephin. Continue IV Rocephin 2 g daily. Patient can possibly be discharged on Omnicef. Anticipate discharge to SNF in about 24-48 hours. - Constitutional Vitals: Temp Pulse Resp BP Pulse Ox 98.9 F 75 18 151/65 95 12/16/17 10:52 12/16/17 10:52 12/16/17 10:52 12/16/17 10:52 12/16/17 10:52 General appearance: Present: A&O X 0, pleasant, no acute distress Exam: Generalized weakness. Nonverbal at baseline. Unable to provide any history. Not in any distress. Seems to be at baseline state. - Head Head exam: Present: atraumatic - Eye Eye exam: Present: PERRL - ENT ENT exam: Present: mucous membranes moist - Respiratory Respiratory exam: Present: decreased breath sounds (Slightly decreased in both bases, otherwise clear to auscultation) - Cardiovascular Cardiovascular exam: Present: RRR, +S1, +S2 - GI/Abdominal GI/Abdominal exam: Present: soft, no peritoneal signs. Absent: distended, firm , guarding, tenderness - Extremities Exam Extremities exam: Present: pedal edema (Mild bilateral), radial pulses palpable and symmetrical. Absent: calf tenderness, tenderness - Neurological Exam Additional comments: Patient is awake. Nonverbal at baseline. Does not follow verbal commands. She does seem more interactive today. Seems to be at baseline state. Internal Medicine: Result - Labs CBC & Chem 7: 12/16/17 07:30 12/16/17 07:30 Labs: Short CBC 12/16/17 Range/Units 07:30 WBC 9.0 (4.3-11.1) K/mcL Hgb 10.9 L (11.5-15.4) g/dL Hct 32.7 L (35.3-44.9) % Plt Count 178 (140-400) K/mcL Neutrophils # 6.2 (1.6-8.9) K/mcL BMP 12/16/17 07:30 Sodium 139 Potassium 3.8 Chloride 109 H Carbon Dioxide 23 BUN 8 Creatinine 0.71 Glucose 119 H Calcium 8.8 - VTE Documentation of Mechanical Device: Intermittent pneumatic compression device Consult Discharge Plan - Plan Referrals: Virgilio Delong MD [Primary Care Provider] -
[2017-12-17 01:47] LABS: Hematocrit 29.9 % (35.3-44.9); Hemoglobin 10.1 g/dL (11.5-15.4); Mean Corpuscular HGB Conc 33.8 g/dL (31.6-35.5); Mean Corpuscular Hemoglobin 30.4 pg (28.0-33.3); Mean Corpuscular Volume 90.1 fL (83.0-100.0); Mean Platelet Volume 10.6 fL (9.4-12.4); Platelet Count 171 K/mcL (140-400); Red Blood Count 3.32 M/mcL (3.82-4.97); Red Cell Distribution Width 13.3 % (11.5-14.5)
[2017-12-17 02:05] LABS: BUN/Creatinine Ratio 12 (6-26); Blood Urea Nitrogen 10 mg/dL (8-23); Calcium 8.6 mg/dL (8.6-10.3); Carbon Dioxide 25 mEq/L (23-29); Chloride 110 mEq/L (98-107); Glucose 103 mg/dL (70-105); Osmolality,Calculated 289 (280-300); Potassium 3.6 mEq/L (3.5-5.1); Sodium 140 mEq/L (136-145); eGFR For Non-African Americans > 60 (> 60)
[2017-12-17] MEDS: levETIRAcetam 500 MG/5 ML UDC PO SCH ×2 (04:28→16:00)
[2017-12-17] MEDS: Levothyroxine 25 MCG TABLET PO SCH (06:08)
[2017-12-17] MEDS: cloNIDine HCl 0.1 MG TABLET PO SCH ×2 (08:10→20:40)
[2017-12-17] MEDS: Aspirin Enteric Coated 81 MG Tablet PO SCH (08:10)
[2017-12-17] MEDS: Perphenazine 2 MG TABLET PO SCH ×3 (08:10→20:42)
[2017-12-17] MEDS: amLODIPine 5 MG TABLET PO SCH (08:11)
[2017-12-17] MEDS: rOPINIRole 1 MG TABLET PO SCH ×2 (08:12→20:40)
[2017-12-17] MEDS: Cholecalciferol (D-3) 1,000 UNIT TABLET PO SCH (08:12)
[2017-12-17] MEDS: 0.9 % Sodium Chloride 1,000 ML IVC SCH (09:29)
[2017-12-17] MEDS: cefTRIAXone 2,000 MG in Water for inj. (sterile) 20 ML 20 ML IVP SCH (09:30)
--- NOTE | 2017-12-17 19:36 | Internal Med Progress Note ---
Hospitalist Progress Note - Encounter Date of Encounter: 12/17/17 Time of Encounter: 15:50 - Subjective Interval History: I discussed the patient case with her primary nurse. Patient is nonverbal and, according to the nurse, appears to be at baseline. No reported significant events overnight and today. I reviewed patient's medical records, lab data, and recent microbiology results. Of note, her urine culture from admission has been negative. Prior to that, she had an abnormal UTI/culture. I recommend repeating urinalysis and culture now with likely cessation of antibiotics tomorrow if cultures are negative. Patient likely to be discharged tomorrow with appropriate disposition with or without antibiotics pending culture results. - Exam Vitals: Temp Pulse Resp BP Pulse Ox 98.6 F 74 18 94/60 94 12/17/17 14:23 12/17/17 14:23 12/17/17 14:23 12/17/17 14:23 12/17/17 14:23 Exam: General: NAD; non-verbal; HEENT: Moist mucosa; neck supple; no icterus Chest: CTA B; No WRR; RRR Abdomen: Soft; NT; ND; NO HSMG; + BS Ext: No CC; trace edema; no joint effusions Neuro: Alert, responsive, non-communicative (baseline) Skin: warm/dry - Assessment and Plan (1) Urinary tract infection Current Visit: Yes Status: Acute Assessment and Plan: 1. Repeat U/A C&S now. 2. Possibly stop antibiotics tomorrow pending urine culture results and D/C back to [facility] (2) Essential hypertension Current Visit: Yes Status: Chronic Assessment and Plan: 1. Continue home meds, monitor BP and adjust dosing as needed. (3) Seizure disorder Current Visit: Yes Status: Chronic Assessment and Plan: 1. Seizure precautions. 2. Continue home meds. (4) DVT prophylaxis Current Visit: Yes Status: Acute Assessment and Plan: 1. EPCD's. Internal Medicine: Result - Labs CBC & Chem 7: 12/17/17 01:33 12/17/17 01:33 Labs: Short CBC 12/17/17 Range/Units 01:33 WBC 7.3 (4.3-11.1) K/mcL Hgb 10.1 L (11.5-15.4) g/dL Hct 29.9 L (35.3-44.9) % Plt Count 171 (140-400) K/mcL [facility] 12/17/17 01:33 Sodium 140 Potassium 3.6 Chloride 110 H Carbon Dioxide 25 BUN 10 Creatinine 0.82 Glucose 103 Calcium 8.6 - VTE Documentation of Mechanical Device: Intermittent pneumatic compression device Consult Discharge Plan - Plan Referrals: Virgilio Delong MD [Primary Care Provider] - (1) Urinary tract infection Qualifiers: Urinary tract infection type: acute cystitis Hematuria presence: without hematuria Qualified Code(s): N30.00 - Acute cystitis without hematuria
[2017-12-17] MEDS: Famotidine 20 MG TABLET PO SCH (20:40)
[2017-12-18] MEDS: levETIRAcetam 500 MG/5 ML UDC PO SCH (03:56)
[2017-12-18] MEDS: 0.9 % Sodium Chloride 1,000 ML IVC SCH (04:04)
[2017-12-18] MEDS: Levothyroxine 25 MCG TABLET PO SCH (05:39)
[2017-12-18 06:04] LABS: Basophils % 0.6 %; Eosinophils # 0.7 K/mcL (0.0-0.6); Eosinophils % 9.9 %; Hematocrit 29.2 % (35.3-44.9); Hemoglobin 9.7 g/dL (11.5-15.4); Immature Granulocytes % 0.4 % (0-4); Lymphocytes # 2.1 K/mcL (0.6-4.6); Lymphocytes % 30.1 %; Mean Corpuscular HGB Conc 33.2 g/dL (31.6-35.5); Mean Corpuscular Hemoglobin 29.7 pg (28.0-33.3); Mean Corpuscular Volume 89.3 fL (83.0-100.0); Mean Platelet Volume 10.8 fL (9.4-12.4); Monocytes # 0.8 K/mcL (0.0-1.3); Monocytes % 11.2 %; Neutrophils # 3.3 K/mcL (1.6-8.9); Platelet Count 196 K/mcL (140-400); Red Blood Count 3.27 M/mcL (3.82-4.97); Red Cell Distribution Width 13.4 % (11.5-14.5); Segmented Neutrophils % 47.8 %
[2017-12-18 06:24] LABS: Alanine Aminotransferase 22 Units/L (7-52); Albumin 3.4 g/dL (3.5-5.7); Albumin/Globulin Ratio 1.3 (1.1-2.2); Alkaline Phosphatase 41 Units/L (34-104); Aspartate Amino Transferase 18 Units/L (13-39); BUN/Creatinine Ratio 19 (6-26); Bilirubin,Total 0.3 mg/dL (0.3-1.0); Blood Urea Nitrogen 15 mg/dL (8-23); Calcium 8.3 mg/dL (8.6-10.3); Carbon Dioxide 24 mEq/L (23-29); Chloride 112 mEq/L (98-107); Globulin 2.7 g/dL (2.4-3.5); Glucose 107 mg/dL (70-105); Osmolality,Calculated 293 (280-300); Potassium 3.7 mEq/L (3.5-5.1); Sodium 141 mEq/L (136-145); Total Protein 6.1 g/dL (6.4-8.9); eGFR For Non-African Americans > 60 (> 60)
[2017-12-18] MEDS: Perphenazine 2 MG TABLET PO SCH (07:19)
[2017-12-18] MEDS: Aspirin Enteric Coated 81 MG Tablet PO SCH (07:19)
[2017-12-18] MEDS: cloNIDine HCl 0.1 MG TABLET PO SCH (07:19)
[2017-12-18] MEDS: amLODIPine 5 MG TABLET PO SCH (07:21)
[2017-12-18] MEDS: Cholecalciferol (D-3) 1,000 UNIT TABLET PO SCH (07:21)
[2017-12-18] MEDS: rOPINIRole 1 MG TABLET PO SCH (07:21)
--- NOTE | 2017-12-18 09:24 | Internal Med Progress Note ---
Hospitalist Progress Note - Encounter Date of Encounter: 12/18/17 Time of Encounter: 09:22 - Exam Vitals: Temp Pulse Resp BP Pulse Ox 98.8 F 76 16 160/68 96 12/18/17 07:45 12/18/17 07:45 12/18/17 07:45 12/18/17 07:45 12/18/17 07:45 Exam: General: NAD; non-verbal; HEENT: Moist mucosa; neck supple; no icterus Chest: CTA B; No WRR; RRR Abdomen: Soft; NT; ND; NO HSMG; + BS Ext: No CC; trace edema; no joint effusions Neuro: Alert, responsive, non-communicative (baseline) Skin: warm/dry - Assessment and Plan (1) Urinary tract infection Current Visit: Yes Status: Acute Assessment and Plan: UA was not obtained from this admission cultures negative will repeat ua if negative then discontinue antibiotics and discharge (2) Essential hypertension Current Visit: Yes Status: Chronic Assessment and Plan: will continue current treatment (3) Seizure disorder Current Visit: Yes Status: Chronic Assessment and Plan: no new seizure episode (4) Nonverbal Current Visit: Yes Status: Chronic Assessment and Plan: patient nonverbal - Time Spent with Patient Total time spent is greater than 50% in coordination of care (as documented) at patient's floor/unit and/or counseling patient: Internal Medicine: Result - Labs CBC & Chem 7: 12/18/17 05:29 12/18/17 05:29 Labs: Short CBC 12/18/17 Range/Units 05:29 WBC 6.9 (4.3-11.1) K/mcL Hgb 9.7 L (11.5-15.4) g/dL Hct 29.2 L (35.3-44.9) % Plt Count 196 (140-400) K/mcL Neutrophils # 3.3 (1.6-8.9) K/mcL BMP 12/18/17 05:29 Sodium 141 Potassium 3.7 Chloride 112 H Carbon Dioxide 24 BUN 15 Creatinine 0.79 Glucose 107 H Calcium 8.3 L Liver Function 12/18/17 Range/Units 05:29 Total Bilirubin 0.3 (0.3-1.0) mg/dL AST 18 (13-39) Units/L ALT 22 (7-52) Units/L Alkaline Phosphatase 41 (34-104) Units/L Albumin 3.4 L (3.5-5.7) g/dL - VTE Documentation of Mechanical Device: Intermittent pneumatic compression device Consult Discharge Plan - Plan Referrals: Virgilio Delong MD [Primary Care Provider] - (1) Urinary tract infection Qualifiers: Urinary tract infection type: acute cystitis Hematuria presence: without hematuria Qualified Code(s): N30.00 - Acute cystitis without hematuria
[2017-12-18] MEDS: cefTRIAXone 2,000 MG in Water for inj. (sterile) 20 ML 20 ML IVP SCH (10:45)
[2017-12-18 10:55] LABS: Bilirubin,Urine Negative (Negative); Blood,Urine Small (Negative); Clarity,Urine Clear (Clear); Color,Urine Yellow (Yellow); Glucose,Urine (UA) Normal (Normal); Ketones,Urine Negative (Negative); Leukocyte Esterase,Urine Small (Negative); Nitrite,Urine Negative (Negative); Protein,Urine Negative (Neg-Trace); Urobilinogen,Urine Normal (Normal)
[2017-12-18 10:57] LABS: Hyaline Casts,Urine None Seen per lpf (None-Few); RBC,Urine 0-3 per hpf (0-3); Squamous Epithelial Cell,Urine Moderate per lpf (None-Few)
[2017-12-18 11:15] LABS: Bacteria,Urine Moderate per hpf (None-Few); Mucus,Urine Moderate (Few)
[2017-12-18 11:34] VITALS: BP 158/72
--- NOTE | 2017-12-18 12:47 | Discharge Summary ---
Orders not resulted at time of discharge: Pending orders 12/17/17 16:11 Culture,Urine [RM] Stat 12/18/17 10:33 UA w. reflex culture [Urinalysis Reflex Cult & Micro] [URIN] Stat Date of Encounter: 12/18/17 Time of Encounter: 12:45 - Discharge Diagnosis (1) Urinary tract infection Priority: Primary Status: Acute Qualifiers: Urinary tract infection type: acute cystitis Hematuria presence: without hematuria Qualified Code(s): N30.00 - Acute cystitis without hematuria (2) Essential hypertension Priority: Secondary Status: Chronic (3) Seizure disorder Priority: Secondary Status: Chronic (4) Nonverbal Priority: Secondary Status: Chronic Hospital course: Ms. Li is a 67 year old female see todays progress noted patient has received 6 doses of rocephin for treatment of uti repeat ua today no uti negative nitrite and no bacteria [facility] no further antibiotics neccessary - Time Spent with Patient Total time spent providing and/or coordinating discharge services: - Discharge Medications Home Medications: Acetaminophen [Tylenol] 1,000 mg PO Q4H PRN 02/01/16 [History] Amlodipine Besylate 10 mg PO DAILY 02/01/16 [History] Bismuth Subsalicylate [Pepto-Bismol] 15 ml PO Q4H PRN 02/01/16 [History] Chloraseptic [place] [Chloraseptic] 1 spray MM QID PRN 02/01/16 [History] Cholecalciferol (D-3) [Vitamin D] 2,000 unit PO DAILY 02/01/16 [History] LevETIRAcetam [Roweepra] 500 mg PO Q12H 02/01/16 [History] Levothyroxine [Synthroid] 25 mcg PO 0630 02/01/16 [History] Loperamide HCl [Imodium A-D] 2 mg PO AD PRN MDD 6 CAP/ 24 HOURS 02/01/16 [ History] Magnesium Hydroxide [Milk of Magnesia] 30 ml PO DAILY PRN 02/01/16 [History] Osmar/Poly/Chayito OINT [Triple Antibiotic Ointment] 1 appl TP TID PRN 02/01/16 [ History] Paliperidone [Invega] 3 mg PO DAILY 02/01/16 [History] Propranolol [Inderal] 20 mg PO TID 02/01/16 [History] Raloxifene [Evista] 60 mg PO DAILY 02/01/16 [History] Ranitidine HCl [Zantac] 300 mg PO HS 02/01/16 [History] Vitamin E 400 unit PO DAILY 02/01/16 [History] cloNIDine HCl [CloNIDine HCl] 0.1 mg PO BID 02/01/16 [History] rOPINIRole [Requip] 1 mg PO BID 02/01/16 [History] Aspirin [Lo-Dose Aspirin EC] 81 mg PO DAILY 10/07/17 [History] Calcium Carbonate [Calcium] 500 mg PO BID 12/13/17 [History] Docusate [Colace] 100 mg PO DAILY 12/13/17 [History] GuaiFENesin/Dextromethorphan [Children's Mucinex Cough Liq] 5 ml PO Q4H PRN [History] Lisinopril [Zestril] 10 mg PO DAILY 12/13/17 [History] Perphenazine [Trilafon] 2 mg PO 0800,1600,199912/13/17 [History] Allergies/Adverse Reactions: 3 Allergy/AdvReac Type Severity Reaction Status Date / Time Penicillins Allergy Hives Verified 12/13/17 12:07 potassium [From Potassimin] Allergy Hives Verified 12/13/17 12:07 Date of admission: 12/13/17 17:14 Primary care physician: Virgilio Delong MD Consults: 12/14/17 08:59 Consult to Occupational Therapy [CONS] Routine Comment: Evaluate, develop and implement POC Reason for Consult: weakness, possible placement Does patient have active BEDREST order?: No Is patient medically & hemodynamically stable?: Yes Consult to Physical Therapy [CONS] Routine Comment: Evaluate, develop and implement POC Reason for Consult: weakness, possible placement Does patient have active BEDREST order?: No Is patient medically & hemodynamically stable?: Yes Discharging clinician: Jose Mireles Anticipated date of discharge: 12/18/17 - Constitutional Vitals: Temp Pulse Resp BP Pulse Ox 98.3 F 70 17 158/72 97 12/18/17 11:33 12/18/17 11:33 12/18/17 11:33 12/18/17 11:33 12/18/17 11:33 General appearance: Present: A&O X 0, pleasant, no acute distress Exam: General: NAD; non-verbal; HEENT: Moist mucosa; neck supple; no icterus Chest: CTA B; No WRR; RRR Abdomen: Soft; NT; ND; NO HSMG; + BS Ext: No CC; trace edema; no joint effusions Neuro: Alert, responsive, non-communicative (baseline) Skin: warm/dry - Patient Status Disposition: Home, Self-Care Condition: Good Functional capacity at discharge: bed bound Overall status at discharge: patient is back to baseline - Discharge Instructions - Diet and Activity Activity: other Diet: advance to your usual diet - VTE Documentation of Mechanical Device: Intermittent pneumatic compression device
== END 2017-12-18 14:38 | disposition home or self-care (01) | DRG 690 ==
LOC: EMEROOARM 09:55 → 3ANU 09:55
PROVIDERS: ADMIT Internal Medicine; ATTEND Internal Medicine

== ENCOUNTER 2018-12-13 18:52 | Inpatient (IN) ==
[2018-12-13 20:46] LABS: Basophils % 0.6 %; Eosinophils # 0.5 K/mcL (0.0-0.6); Eosinophils % 7.2 %; Hematocrit 31.5 % (35.3-44.9); Hemoglobin 10.6 g/dL (11.5-15.4); Immature Granulocytes % 0.3 % (0-4); Lymphocytes # 1.5 K/mcL (0.6-4.6); Lymphocytes % 23.6 %; Mean Corpuscular HGB Conc 33.7 g/dL (31.6-35.5); Mean Corpuscular Hemoglobin 31.1 pg (28.0-33.3); Mean Corpuscular Volume 92.4 fL (83.0-100.0); Mean Platelet Volume 11.2 fL (9.4-12.4); Monocytes # 0.7 K/mcL (0.0-1.3); Monocytes % 11.8 %; Neutrophils # 3.5 K/mcL (1.6-8.9); Platelet Count 136 K/mcL (140-400); Red Blood Count 3.41 M/mcL (3.82-4.97); Red Cell Distribution Width 12.7 % (11.5-14.5); Segmented Neutrophils % 56.5 %; White Blood Count 6.3 K/mcL (4.3-11.1)
[2018-12-13 21:03] LABS: BUN/Creatinine Ratio 20 (6-26); Blood Urea Nitrogen 17 mg/dL (8-23); Calcium 8.9 mg/dL (8.6-10.3); Carbon Dioxide 26 mEq/L (23-29); Chloride 106 mEq/L (98-107); Glucose 93 mg/dL (70-105); Osmolality,Calculated 293 (280-300); Potassium 3.4 mEq/L (3.5-5.1); Sodium 141 mEq/L (136-145); eGFR For African Americans > 60 (> 60); eGFR For Non-African Americans > 60 (> 60)
[2018-12-13 21:05] LABS: Troponin I < 0.03 ng/mL (< 0.04)
[2018-12-13] MEDS ORDERED: Furosemide 40 MG/4 ML VIAL IVP ONE (22:19)
[2018-12-14] MEDS ORDERED: Naloxone 0.4 MG/ML INJ IVP PRN (02:27)
[2018-12-14] MEDS ORDERED: Bacitracin/PolymyxinB OINT 14.17 GM TUBE TP PRN (02:32)
[2018-12-14] MEDS ORDERED: Bismuth Subsalicylate 120 ML ORAL SUSPENSION PO PRN (02:32)
[2018-12-14] MEDS ORDERED: Chloraseptic Spray 177 ML BOTTLE MM PRN (02:32)
[2018-12-14 03:35] LABS: Bilirubin,Urine Negative (Negative); Blood,Urine Negative (Negative); Clarity,Urine Clear (Clear); Color,Urine Yellow (Yellow); Glucose,Urine (UA) Normal (Normal); Ketones,Urine Negative (Negative); Leukocyte Esterase,Urine Negative (Negative); Nitrite,Urine Negative (Negative); PH,Urine 6.5 pH Units (5.0-8.0); Protein,Urine Negative (Neg-Trace); Specific Gravity,Urine 1.009 (1.010-1.025); Urobilinogen,Urine Normal (Normal)
[2018-12-14] MEDS: Levothyroxine 25 MCG TABLET PO SCH (05:58)
[2018-12-14] MEDS: levETIRAcetam 500 MG/5 ML UDC PO SCH ×2 (05:58→18:56)
[2018-12-14 08:35] LABS: Basophils % 0.5 %; Eosinophils # 0.4 K/mcL (0.0-0.6); Eosinophils % 5.6 %; Hematocrit 34.4 % (35.3-44.9); Hemoglobin 11.4 g/dL (11.5-15.4); Immature Granulocytes % 0.3 % (0-4); Lymphocytes # 1.2 K/mcL (0.6-4.6); Lymphocytes % 18.3 %; Mean Corpuscular HGB Conc 33.1 g/dL (31.6-35.5); Mean Corpuscular Volume 93.5 fL (83.0-100.0); Mean Platelet Volume 11.4 fL (9.4-12.4); Monocytes # 0.6 K/mcL (0.0-1.3); Monocytes % 9.7 %; Neutrophils # 4.1 K/mcL (1.6-8.9); Platelet Count 149 K/mcL (140-400); Red Blood Count 3.68 M/mcL (3.82-4.97); Red Cell Distribution Width 12.6 % (11.5-14.5); Segmented Neutrophils % 65.6 %; White Blood Count 6.3 K/mcL (4.3-11.1)
[2018-12-14 08:47] LABS: INR 1.1; Prothrombin Time 12.3 Seconds (9.4-12.1)
[2018-12-14 08:50] LABS: Activated Partial Thrombo Time 32.6 Seconds (26.0-36.0)
[2018-12-14 08:55] LABS: Alanine Aminotransferase 20 Units/L (7-52); Albumin 4.4 g/dL (3.5-5.7); Albumin/Globulin Ratio 1.6 (1.1-2.2); Alkaline Phosphatase 42 Units/L (34-104); Aspartate Amino Transferase 21 Units/L (13-39); BUN/Creatinine Ratio 18 (6-26); Bilirubin,Total 0.5 mg/dL (0.3-1.0); Blood Urea Nitrogen 15 mg/dL (8-23); Carbon Dioxide 27 mEq/L (23-29); Chloride 102 mEq/L (98-107); Chol/HDL Ratio 2.8 (0-4.9); Cholesterol 154 mg/dL (< 200); Globulin 2.8 g/dL (2.4-3.5); Glucose 101 mg/dL (70-105); HDL Cholesterol 55 mg/dL (40-59); LDL Cholesterol,Calculated 82 mg/dL (0-99); Magnesium 2.1 mg/dL (1.6-2.6); Osmolality,Calculated 293 (280-300); Phosphorous 3.1 mg/dL (2.7-4.5); Potassium 3.3 mEq/L (3.5-5.1); Sodium 141 mEq/L (136-145); Total Protein 7.2 g/dL (6.4-8.9); Triglycerides 84 mg/dL (< 150); eGFR For African Americans > 60 (> 60); eGFR For Non-African Americans > 60 (> 60)
[2018-12-14] MEDS ORDERED: MAGNESIUM HYDROXIDE PO PRN (09:00)
[2018-12-14] MEDS ORDERED: Potassium Chloride 20 MEQ, Lidocaine 1% 2 ML in 0.9 % Sodium Chloride 250 ML IVPB ONE (10:23)
[2018-12-14] MEDS: (Valbenazine Tosylate [Ingrezza] 80 MG) PO SCH (10:57)
[2018-12-14] MEDS: Furosemide 40 MG/4 ML VIAL IVP SCH (11:15)
[2018-12-14] MEDS: rOPINIRole 1 MG TABLET PO SCH ×2 (11:16→21:57)
[2018-12-14] MEDS: Aspirin Enteric Coated 81 MG Tablet PO SCH (11:16)
[2018-12-14] MEDS: Cholecalciferol (D-3) 1,000 UNIT (25MCG) TABLET PO SCH (11:16)
[2018-12-14] MEDS: cloNIDine HCl 0.1 MG TABLET PO SCH ×2 (11:17→21:57)
[2018-12-14] MEDS: Vitamin E 200 UNIT (90MG) CAPSULE PO SCH (11:17)
[2018-12-14] MEDS: amLODIPine 5 MG TABLET PO SCH (11:18)
[2018-12-14] MEDS: Perphenazine 2 MG TABLET PO SCH ×3 (11:22→21:58)
[2018-12-14] MEDS ORDERED: Famotidine 20 MG TABLET PO SCH (21:00)
[2018-12-15] MEDS: levETIRAcetam 500 MG/5 ML UDC PO SCH ×2 (05:20→17:13)
[2018-12-15] MEDS: Levothyroxine 25 MCG TABLET PO SCH (05:21)
[2018-12-15] MEDS: cloNIDine HCl 0.1 MG TABLET PO SCH ×2 (08:54→21:40)
[2018-12-15] MEDS: Vitamin E 200 UNIT (90MG) CAPSULE PO SCH (08:54)
[2018-12-15] MEDS: Furosemide 40 MG/4 ML VIAL IVP SCH (08:55)
[2018-12-15] MEDS: rOPINIRole 1 MG TABLET PO SCH ×2 (08:55→21:40)
[2018-12-15] MEDS: Aspirin Enteric Coated 81 MG Tablet PO SCH (08:55)
[2018-12-15] MEDS: Cholecalciferol (D-3) 1,000 UNIT (25MCG) TABLET PO SCH (08:55)
[2018-12-15] MEDS: amLODIPine 5 MG TABLET PO SCH (08:55)
[2018-12-15] MEDS: (Valbenazine Tosylate [Ingrezza] 80 MG) PO SCH (08:56)
[2018-12-15 09:02] LABS: Basophils % 0.4 %; Eosinophils # 0.3 K/mcL (0.0-0.6); Hemoglobin 11.5 g/dL (11.5-15.4); Immature Granulocytes % 0.2 % (0-4); Lymphocytes # 1.1 K/mcL (0.6-4.6); Lymphocytes % 20.9 %; Mean Corpuscular HGB Conc 32.9 g/dL (31.6-35.5); Mean Corpuscular Hemoglobin 30.9 pg (28.0-33.3); Mean Corpuscular Volume 94.1 fL (83.0-100.0); Mean Platelet Volume 11.3 fL (9.4-12.4); Monocytes # 0.7 K/mcL (0.0-1.3); Monocytes % 12.5 %; Neutrophils # 3.3 K/mcL (1.6-8.9); Platelet Count 154 K/mcL (140-400); Red Blood Count 3.72 M/mcL (3.82-4.97); Red Cell Distribution Width 12.8 % (11.5-14.5); White Blood Count 5.4 K/mcL (4.3-11.1)
[2018-12-15 09:12] LABS: BUN/Creatinine Ratio 21 (6-26); Blood Urea Nitrogen 21 mg/dL (8-23); Carbon Dioxide 27 mEq/L (23-29); Chloride 104 mEq/L (98-107); Glucose 108 mg/dL (70-105); Osmolality,Calculated 296 (280-300); Potassium 3.5 mEq/L (3.5-5.1); Sodium 141 mEq/L (136-145); eGFR For African Americans > 60 (> 60); eGFR For Non-African Americans 55 (> 60)
[2018-12-15] MEDS: Perphenazine 2 MG TABLET PO SCH ×3 (09:13→21:40)
[2018-12-15] MEDS: Famotidine 20 MG TABLET PO SCH (21:40)
[2018-12-16] MEDS: levETIRAcetam 500 MG/5 ML UDC PO SCH ×2 (05:10→17:19)
[2018-12-16] MEDS: Levothyroxine 25 MCG TABLET PO SCH (05:10)
[2018-12-16] MEDS: *HR* Enoxaparin 40 MG/0.4 ML SYRINGE SQ SCH (05:10)
[2018-12-16 05:12] LABS: Basophils % 0.6 %; Eosinophils # 0.4 K/mcL (0.0-0.6); Eosinophils % 5.6 %; Hematocrit 34.2 % (35.3-44.9); Immature Granulocytes % 0.3 % (0-4); Lymphocytes # 1.7 K/mcL (0.6-4.6); Mean Corpuscular HGB Conc 32.2 g/dL (31.6-35.5); Mean Corpuscular Hemoglobin 30.9 pg (28.0-33.3); Mean Corpuscular Volume 96.1 fL (83.0-100.0); Mean Platelet Volume 11.6 fL (9.4-12.4); Monocytes # 0.8 K/mcL (0.0-1.3); Monocytes % 11.3 %; Neutrophils # 3.8 K/mcL (1.6-8.9); Platelet Count 157 K/mcL (140-400); Red Blood Count 3.56 M/mcL (3.82-4.97); Red Cell Distribution Width 12.8 % (11.5-14.5); Segmented Neutrophils % 57.2 %; White Blood Count 6.6 K/mcL (4.3-11.1)
[2018-12-16 05:28] LABS: Calcium 9.1 mg/dL (8.6-10.3); Potassium 3.4 mEq/L (3.5-5.1)
[2018-12-16] MEDS: rOPINIRole 1 MG TABLET PO SCH ×2 (09:55→21:07)
[2018-12-16] MEDS: amLODIPine 5 MG TABLET PO SCH (09:55)
[2018-12-16] MEDS: Furosemide 40 MG/4 ML VIAL IVP SCH (09:55)
[2018-12-16] MEDS: Aspirin Enteric Coated 81 MG Tablet PO SCH (09:55)
[2018-12-16] MEDS: Vitamin E 200 UNIT (90MG) CAPSULE PO SCH (09:55)
[2018-12-16] MEDS: Cholecalciferol (D-3) 1,000 UNIT (25MCG) TABLET PO SCH (09:55)
[2018-12-16] MEDS: (Valbenazine Tosylate [Ingrezza] 80 MG) PO SCH (09:56)
[2018-12-16] MEDS: cloNIDine HCl 0.1 MG TABLET PO SCH ×2 (09:56→21:08)
[2018-12-16] MEDS: Perphenazine 2 MG TABLET PO SCH ×3 (10:16→21:08)
[2018-12-16] MEDS: Famotidine 20 MG TABLET PO SCH (21:08)
[2018-12-17] MEDS: Levothyroxine 25 MCG TABLET PO SCH (05:48)
[2018-12-17] MEDS: *HR* Enoxaparin 40 MG/0.4 ML SYRINGE SQ SCH (05:49)
[2018-12-17] MEDS: levETIRAcetam 500 MG/5 ML UDC PO SCH (05:49)
[2018-12-17] MEDS: Vitamin E 200 UNIT (90MG) CAPSULE PO SCH (08:19)
[2018-12-17] MEDS: rOPINIRole 1 MG TABLET PO SCH (08:19)
[2018-12-17] MEDS: Aspirin Enteric Coated 81 MG Tablet PO SCH (08:19)
[2018-12-17] MEDS: cloNIDine HCl 0.1 MG TABLET PO SCH (08:19)
[2018-12-17] MEDS: amLODIPine 5 MG TABLET PO SCH (08:19)
[2018-12-17 08:20] LABS: Basophils # 0.1 K/mcL (0.0-0.2); Basophils % 0.7 %; Eosinophils # 0.4 K/mcL (0.0-0.6); Hematocrit 37.5 % (35.3-44.9); Hemoglobin 12.2 g/dL (11.5-15.4); Immature Granulocytes % 0.1 % (0-4); Lymphocytes # 1.6 K/mcL (0.6-4.6); Lymphocytes % 23.5 %; Mean Corpuscular HGB Conc 32.5 g/dL (31.6-35.5); Mean Corpuscular Volume 95.2 fL (83.0-100.0); Mean Platelet Volume 11.3 fL (9.4-12.4); Monocytes # 0.7 K/mcL (0.0-1.3); Monocytes % 10.5 %; Neutrophils # 4.1 K/mcL (1.6-8.9); Platelet Count 158 K/mcL (140-400); Red Blood Count 3.94 M/mcL (3.82-4.97); Red Cell Distribution Width 12.7 % (11.5-14.5); Segmented Neutrophils % 59.2 %; White Blood Count 6.9 K/mcL (4.3-11.1)
[2018-12-17] MEDS: (Valbenazine Tosylate [Ingrezza] 80 MG) PO SCH (08:20)
[2018-12-17] MEDS: Perphenazine 2 MG TABLET PO SCH (08:20)
[2018-12-17] MEDS: Cholecalciferol (D-3) 1,000 UNIT (25MCG) TABLET PO SCH (08:20)
[2018-12-17 08:24] LABS: BUN/Creatinine Ratio 31 (6-26); Blood Urea Nitrogen 31 mg/dL (8-23); Calcium 9.4 mg/dL (8.6-10.3); Carbon Dioxide 27 mEq/L (23-29); Chloride 107 mEq/L (98-107); Glucose 108 mg/dL (70-105); Osmolality,Calculated 301 (280-300); Potassium 3.7 mEq/L (3.5-5.1); Sodium 142 mEq/L (136-145); eGFR For African Americans > 60 (> 60); eGFR For Non-African Americans 55 (> 60)
[2018-12-17] MEDS ORDERED: Furosemide 20 MG TABLET PO SCH (10:45)
[2018-12-17 15:08] VITALS: BP 128/71
== END 2018-12-17 16:46 | DRG 314 ==
LOC: 3BNU 18:52 → EMEROOARM 18:52 → 3BNU 12-14 00:17
PROVIDERS: ADMIT Internal Medicine Nephrology; ATTEND Internal Medicine Nephrology

== ENCOUNTER 2019-02-25 16:32 | Inpatient (IN) ==
[2019-02-25 17:31] LABS: Basophils % 0.4 %; Eosinophils # 0.3 K/mcL (0.0-0.6); Eosinophils % 4.1 %; Hematocrit 35.6 % (35.3-44.9); Hemoglobin 12.2 g/dL (11.5-15.4); Immature Granulocytes % 0.3 % (0-4); Lymphocytes # 1.4 K/mcL (0.6-4.6); Lymphocytes % 20.5 %; Mean Corpuscular HGB Conc 34.3 g/dL (31.6-35.5); Mean Corpuscular Hemoglobin 30.4 pg (28.0-33.3); Mean Corpuscular Volume 88.8 fL (83.0-100.0); Mean Platelet Volume 11.3 fL (9.4-12.4); Monocytes # 0.7 K/mcL (0.0-1.3); Monocytes % 10.5 %; Neutrophils # 4.4 K/mcL (1.6-8.9); Platelet Count 143 K/mcL (140-400); Red Blood Count 4.01 M/mcL (3.82-4.97); Red Cell Distribution Width 12.8 % (11.5-14.5); Segmented Neutrophils % 64.2 %; White Blood Count 6.8 K/mcL (4.3-11.1)
[2019-02-25 17:56] LABS: Alanine Aminotransferase 18 Units/L (7-52); Albumin 4.2 g/dL (3.5-5.7); Albumin/Globulin Ratio 1.4 (1.1-2.2); Alkaline Phosphatase 48 Units/L (34-104); Aspartate Amino Transferase 20 Units/L (13-39); BUN/Creatinine Ratio 28 (6-26); Bilirubin,Direct 0.1 mg/dL (0.0-0.2); Bilirubin,Indirect 0.2 mg/dL (0.0-1.0); Bilirubin,Total 0.3 mg/dL (0.3-1.0); Blood Urea Nitrogen 31 mg/dL (8-23); Calcium 9.7 mg/dL (8.6-10.3); Carbon Dioxide 22 mEq/L (23-29); Chloride 104 mEq/L (98-107); Globulin 2.9 g/dL (2.4-3.5); Glucose 94 mg/dL (70-105); Osmolality,Calculated 290 (280-300); Sodium 137 mEq/L (136-145); Total Protein 7.1 g/dL (6.4-8.9); Troponin I < 0.03 ng/mL (< 0.04); eGFR For African Americans 60 (> 60); eGFR For Non-African Americans 49 (> 60)
[2019-02-25 18:32] LABS: Bilirubin,Urine Negative (Negative); Blood,Urine Moderate (Negative); Clarity,Urine Clear (Clear); Color,Urine Yellow (Yellow); Glucose,Urine (UA) Normal (Normal); Ketones,Urine Negative (Negative); Leukocyte Esterase,Urine Negative (Negative); Nitrite,Urine Negative (Negative); PH,Urine 5.5 pH Units (5.0-8.0); Protein,Urine Negative (Neg-Trace); Specific Gravity,Urine 1.015 (1.010-1.025); Urobilinogen,Urine Normal (Normal)
[2019-02-25 18:34] LABS: Bacteria,Urine None Seen per hpf (None-Few); Hyaline Casts,Urine None Seen per lpf (None-Few); Squamous Epithelial Cell,Urine Many per lpf (None-Few); WBC,Urine 0-3 per hpf (0-3)
[2019-02-25 18:49] LABS: ABG Base Excess 2 mEq/L (-2 to 3); ABG HCO3 26 mEq/L (21-27); ABG Oxygen Saturation 96 % (95-98); ABG PCO2 39 mmHg (35-45); ABG PH 7.43 pH Units (7.32-7.45); ABG PO2 79 mmHg (85-104); ABG TCO2 27 mEq/L (20-26)
[2019-02-26] MEDS ORDERED: Naloxone 0.4 MG/ML INJ IVP PRN (00:31)
[2019-02-26] MEDS ORDERED: 0.9 % Sodium Chloride 1,000 ML IVC SCH (00:45)
[2019-02-26 01:09] LABS: Basophils % 0.3 %; Eosinophils # 0.3 K/mcL (0.0-0.6); Eosinophils % 4.1 %; Hematocrit 34.8 % (35.3-44.9); Hemoglobin 12.1 g/dL (11.5-15.4); Immature Granulocytes % 0.3 % (0-4); Lymphocytes # 1.4 K/mcL (0.6-4.6); Lymphocytes % 23.6 %; Mean Corpuscular HGB Conc 34.8 g/dL (31.6-35.5); Mean Corpuscular Hemoglobin 30.7 pg (28.0-33.3); Mean Corpuscular Volume 88.3 fL (83.0-100.0); Mean Platelet Volume 11.2 fL (9.4-12.4); Monocytes # 0.7 K/mcL (0.0-1.3); Monocytes % 10.7 %; Neutrophils # 3.7 K/mcL (1.6-8.9); Platelet Count 148 K/mcL (140-400); Red Blood Count 3.94 M/mcL (3.82-4.97); Red Cell Distribution Width 12.6 % (11.5-14.5); White Blood Count 6.1 K/mcL (4.3-11.1)
[2019-02-26 01:16] LABS: INR 1.1; Prothrombin Time 12.8 Seconds (9.4-12.1)
[2019-02-26 01:29] LABS: Alanine Aminotransferase 18 Units/L (7-52); Albumin 4.1 g/dL (3.5-5.7); Albumin/Globulin Ratio 1.5 (1.1-2.2); Alkaline Phosphatase 41 Units/L (34-104); Aspartate Amino Transferase 19 Units/L (13-39); BUN/Creatinine Ratio 28 (6-26); Bilirubin,Total 0.4 mg/dL (0.3-1.0); Blood Urea Nitrogen 29 mg/dL (8-23); Calcium 9.3 mg/dL (8.6-10.3); Carbon Dioxide 24 mEq/L (23-29); Chloride 105 mEq/L (98-107); Chol/HDL Ratio 3.2 (0-4.9); Cholesterol 167 mg/dL (< 200); Globulin 2.7 g/dL (2.4-3.5); Glucose 88 mg/dL (70-105); HDL Cholesterol 53 mg/dL (40-59); LDL Cholesterol,Calculated 99 mg/dL (0-99); Magnesium 1.9 mg/dL (1.6-2.6); Osmolality,Calculated 291 (280-300); Phosphorous 4.2 mg/dL (2.7-4.5); Potassium 3.5 mEq/L (3.5-5.1); Sodium 138 mEq/L (136-145); Total Protein 6.8 g/dL (6.4-8.9); Triglycerides 75 mg/dL (< 150); eGFR For African Americans > 60 (> 60); eGFR For Non-African Americans 53 (> 60)
[2019-02-26] MEDS ORDERED: Bismuth Subsalicylate 120 ML ORAL SUSPENSION PO PRN (10:18)
[2019-02-26] MEDS ORDERED: MOM Conc 10 ML UD.LIQ PO PRN (10:18)
[2019-02-26] MEDS ORDERED: levETIRAcetam 250 MG TABLET PO SCH (10:30)
[2019-02-26] MEDS: Perphenazine 2 MG TABLET PO SCH ×2 (17:05→20:18)
[2019-02-26] MEDS ORDERED: Acetaminophen IV 500 MG/50 ML INFUS..BTL IVPB ONE (20:07)
[2019-02-26 21:34] LABS: Adenovirus Not Detected (Not Detect); Bordetella Pertussis Not Detected (Not Detect); Chlamydophila pneumoniae Not Detected (Not Detect); Coronavirus 229E Not Detected (Not Detect); Coronavirus HKU1 Not Detected (Not Detect); Coronavirus NL63 Not Detected (Not Detect); Coronavirus OC43 Not Detected (Not Detect); Human Metapneumovirus Not Detected (Not Detect); Human Rhinovirus/Enterovirus Not Detected (Not Detect); Influenza A Subtype 2009 H1 Not Detected (Not Detect); Influenza A Untypeable Not Detected (Not Detect); Influenza B Not Detected (Not Detect); Mycoplasma pneumoniae Not Detected (Not Detect); Parainfluenza Virus 1 Not Detected (Not Detect); Parainfluenza Virus 2 Not Detected (Not Detect); Parainfluenza Virus 3 Not Detected (Not Detect); Parainfluenza Virus 4 Not Detected (Not Detect); Respiratory Syncytial Virus Not Detected (Not Detect)
[2019-02-27] MEDS: rOPINIRole 1 MG TABLET PO SCH ×3 (00:35→19:54)
[2019-02-27] MEDS: Famotidine 20 MG TABLET PO SCH ×2 (00:35→19:54)
[2019-02-27 03:55] LABS: Hematocrit 36.4 % (35.3-44.9); Hemoglobin 12.1 g/dL (11.5-15.4); Mean Corpuscular HGB Conc 33.2 g/dL (31.6-35.5); Mean Corpuscular Hemoglobin 29.8 pg (28.0-33.3); Mean Corpuscular Volume 89.7 fL (83.0-100.0); Mean Platelet Volume 11.6 fL (9.4-12.4); Platelet Count 162 K/mcL (140-400); Red Blood Count 4.06 M/mcL (3.82-4.97); Red Cell Distribution Width 12.7 % (11.5-14.5); White Blood Count 7.3 K/mcL (4.3-11.1)
[2019-02-27 04:12] LABS: Alanine Aminotransferase 22 Units/L (7-52); Albumin 3.8 g/dL (3.5-5.7); Albumin/Globulin Ratio 1.3 (1.1-2.2); Alkaline Phosphatase 38 Units/L (34-104); Aspartate Amino Transferase 22 Units/L (13-39); BUN/Creatinine Ratio 20 (6-26); Bilirubin,Total 0.6 mg/dL (0.3-1.0); Blood Urea Nitrogen 18 mg/dL (8-23); Calcium 8.4 mg/dL (8.6-10.3); Carbon Dioxide 21 mEq/L (23-29); Chloride 108 mEq/L (98-107); Globulin 2.9 g/dL (2.4-3.5); Glucose 83 mg/dL (70-105); Osmolality,Calculated 289 (280-300); Potassium 3.6 mEq/L (3.5-5.1); Sodium 139 mEq/L (136-145); Total Protein 6.7 g/dL (6.4-8.9); eGFR For African Americans > 60 (> 60); eGFR For Non-African Americans > 60 (> 60)
[2019-02-27] MEDS ORDERED: Levothyroxine 25 MCG TABLET PO SCH (06:30)
[2019-02-27] MEDS ORDERED: Isovue-370 500 ML BOTTLE IVP ONE (09:14)
[2019-02-27] MEDS: D5% in 0.45% NACL w KCl 20 MEQ/1,000 ML MLS IVC SCH ×2 (09:18→23:00)
[2019-02-27] MEDS: Aspirin Enteric Coated 81 MG Tablet PO SCH (09:27)
[2019-02-27] MEDS: Perphenazine 2 MG TABLET PO SCH (09:27)
[2019-02-27] MEDS: amLODIPine 5 MG TABLET PO SCH (09:28)
[2019-02-27] MEDS: Valbenazine Tosylate [Ingrezza] 80 MG PO SCH (09:28)
[2019-02-27] MEDS ORDERED: *HR* Labetalol 20 MG/4 ML SYRINGE IVP PRN (09:59)
[2019-02-27] MEDS: Bisacodyl 10 MG RECTAL SUPPOSITORY RC SCH (15:41)
[2019-02-27] MEDS: *HR* Heparin 5,000 UNIT/ML VIAL SQ SCH (16:29)
[2019-02-28 04:29] LABS: Basophils % 0.3 %; Eosinophils # 0.3 K/mcL (0.0-0.6); Hematocrit 34.5 % (35.3-44.9); Hemoglobin 11.3 g/dL (11.5-15.4); Immature Granulocytes % 0.3 % (0-4); Lymphocytes # 1.3 K/mcL (0.6-4.6); Lymphocytes % 14.8 %; Mean Corpuscular HGB Conc 32.8 g/dL (31.6-35.5); Mean Corpuscular Hemoglobin 30.2 pg (28.0-33.3); Mean Corpuscular Volume 92.2 fL (83.0-100.0); Mean Platelet Volume 11.7 fL (9.4-12.4); Monocytes % 11.9 %; Platelet Count 139 K/mcL (140-400); Red Blood Count 3.74 M/mcL (3.82-4.97); Red Cell Distribution Width 13.2 % (11.5-14.5); Segmented Neutrophils % 69.7 %; White Blood Count 8.6 K/mcL (4.3-11.1)
[2019-02-28 04:46] LABS: Alanine Aminotransferase 21 Units/L (7-52); Albumin 3.8 g/dL (3.5-5.7); Albumin/Globulin Ratio 1.5 (1.1-2.2); Alkaline Phosphatase 35 Units/L (34-104); Aspartate Amino Transferase 33 Units/L (13-39); BUN/Creatinine Ratio 20 (6-26); Bilirubin,Total 0.5 mg/dL (0.3-1.0); Blood Urea Nitrogen 15 mg/dL (8-23); Calcium 8.2 mg/dL (8.6-10.3); Carbon Dioxide 21 mEq/L (23-29); Chloride 109 mEq/L (98-107); Globulin 2.6 g/dL (2.4-3.5); Glucose 116 mg/dL (70-105); Osmolality,Calculated 288 (280-300); Potassium 3.7 mEq/L (3.5-5.1); Sodium 138 mEq/L (136-145); Total Protein 6.4 g/dL (6.4-8.9); eGFR For African Americans > 60 (> 60); eGFR For Non-African Americans > 60 (> 60)
[2019-02-28] MEDS: *HR* Heparin 5,000 UNIT/ML VIAL SQ SCH ×2 (06:28→18:37)
[2019-02-28] MEDS ORDERED: Levothyroxine Sodium 100 MCG VIAL IVP SCH (06:30)
[2019-02-28] MEDS: rOPINIRole 1 MG TABLET PO SCH ×2 (09:16→21:35)
[2019-02-28] MEDS: amLODIPine 5 MG TABLET PO SCH (09:16)
[2019-02-28] MEDS: Bisacodyl 10 MG RECTAL SUPPOSITORY RC SCH (09:18)
[2019-02-28] MEDS: Aspirin Enteric Coated 81 MG Tablet PO SCH (09:18)
[2019-02-28] MEDS: Valbenazine Tosylate [Ingrezza] 80 MG PO SCH (09:19)
[2019-02-28] MEDS: levoFLOXacin 750 MG/150 ML 750 MG/150 ML BAG IVPB SCH (11:17)
[2019-02-28] MEDS: D5% in 0.45% NACL w KCl 20 MEQ/1,000 ML MLS IVC SCH (13:31)
[2019-02-28] MEDS ORDERED: Bisacodyl 10 MG RECTAL SUPPOSITORY RC PRN (14:42)
[2019-02-28] MEDS ORDERED: Calcium Gluconate 1gm/50mL 1 GM/50 ML BAG IVPB ONE (14:50)
[2019-02-28] MEDS ORDERED: levETIRAcetam 250 MG TABLET PO SCH (18:00)
[2019-02-28] MEDS: Famotidine 20 MG TABLET PO SCH (21:35)
[2019-03-01 05:18] LABS: Hematocrit 36.9 % (35.3-44.9); Hemoglobin 12.6 g/dL (11.5-15.4); Mean Corpuscular HGB Conc 34.1 g/dL (31.6-35.5); Mean Corpuscular Hemoglobin 30.4 pg (28.0-33.3); Mean Corpuscular Volume 88.9 fL (83.0-100.0); Mean Platelet Volume 11.2 fL (9.4-12.4); Platelet Count 162 K/mcL (140-400); Red Blood Count 4.15 M/mcL (3.82-4.97); Red Cell Distribution Width 12.8 % (11.5-14.5); White Blood Count 8.4 K/mcL (4.3-11.1)
[2019-03-01 05:48] LABS: BUN/Creatinine Ratio 12 (6-26); Blood Urea Nitrogen 10 mg/dL (8-23); Calcium 8.6 mg/dL (8.6-10.3); Carbon Dioxide 21 mEq/L (23-29); Chloride 105 mEq/L (98-107); Glucose 93 mg/dL (70-105); Osmolality,Calculated 277 (280-300); Potassium 4.5 mEq/L (3.5-5.1); Sodium 134 mEq/L (136-145); eGFR For African Americans > 60 (> 60); eGFR For Non-African Americans > 60 (> 60)
[2019-03-01] MEDS: Levothyroxine Sodium 100 MCG VIAL IVP SCH (06:25)
[2019-03-01] MEDS ORDERED: Levothyroxine 25 MCG TABLET PO SCH (06:30)
[2019-03-01] MEDS: *HR* Heparin 5,000 UNIT/ML VIAL SQ SCH ×2 (06:34→17:26)
[2019-03-01] MEDS ORDERED: Levothyroxine Sodium 100 MCG VIAL IVP SCH (09:00)
[2019-03-01] MEDS: Aspirin Enteric Coated 81 MG Tablet PO SCH (09:09)
[2019-03-01] MEDS: rOPINIRole 1 MG TABLET PO SCH ×2 (09:09→21:54)
[2019-03-01] MEDS: amLODIPine 5 MG TABLET PO SCH (09:09)
[2019-03-01] MEDS: Valbenazine Tosylate [Ingrezza] 80 MG PO SCH (09:11)
[2019-03-01] MEDS: levoFLOXacin 750 MG/150 ML 750 MG/150 ML BAG IVPB SCH (09:18)
[2019-03-01] MEDS ORDERED: Lisinopril 20 MG TABLET PO ONE (12:14)
[2019-03-01] MEDS ORDERED: *HR* Labetalol 20 MG/4 ML SYRINGE IVP PRN (12:23)
[2019-03-01] MEDS: Famotidine 20 MG TABLET PO SCH (21:54)
[2019-03-02 00:58] LABS: Basophils % 0.3 %; Eosinophils # 0.3 K/mcL (0.0-0.6); Eosinophils % 3.3 %; Hematocrit 36.2 % (35.3-44.9); Hemoglobin 12.2 g/dL (11.5-15.4); Immature Granulocytes % 0.1 % (0-4); Lymphocytes # 1.7 K/mcL (0.6-4.6); Lymphocytes % 17.7 %; Mean Corpuscular HGB Conc 33.7 g/dL (31.6-35.5); Mean Corpuscular Hemoglobin 30.7 pg (28.0-33.3); Mean Platelet Volume 11.3 fL (9.4-12.4); Monocytes % 10.3 %; Neutrophils # 6.6 K/mcL (1.6-8.9); Platelet Count 164 K/mcL (140-400); Red Blood Count 3.98 M/mcL (3.82-4.97); Red Cell Distribution Width 12.8 % (11.5-14.5); Segmented Neutrophils % 68.3 %; White Blood Count 9.6 K/mcL (4.3-11.1)
[2019-03-02 01:18] LABS: BUN/Creatinine Ratio 18 (6-26); Blood Urea Nitrogen 17 mg/dL (8-23); Calcium 8.9 mg/dL (8.6-10.3); Carbon Dioxide 20 mEq/L (23-29); Chloride 107 mEq/L (98-107); Glucose 91 mg/dL (70-105); Osmolality,Calculated 285 (280-300); Phosphorous 2.4 mg/dL (2.7-4.5); Potassium 3.4 mEq/L (3.5-5.1); Sodium 137 mEq/L (136-145); eGFR For African Americans > 60 (> 60); eGFR For Non-African Americans 57 (> 60)
[2019-03-02] MEDS: Levothyroxine Sodium 100 MCG VIAL IVP SCH (05:53)
[2019-03-02] MEDS: *HR* Heparin 5,000 UNIT/ML VIAL SQ SCH ×2 (05:53→20:07)
[2019-03-02] MEDS: rOPINIRole 1 MG TABLET PO SCH ×2 (07:53→20:07)
[2019-03-02] MEDS: Aspirin Enteric Coated 81 MG Tablet PO SCH (07:53)
[2019-03-02] MEDS: amLODIPine 5 MG TABLET PO SCH (07:53)
[2019-03-02] MEDS: Valbenazine Tosylate [Ingrezza] 80 MG PO SCH (07:53)
[2019-03-02] MEDS: levoFLOXacin 750 MG/150 ML 750 MG/150 ML BAG IVPB SCH (07:54)
[2019-03-02] MEDS ORDERED: Potassium Phosphate 44 MEQ in 0.9 % Sodium Chloride 250 ML IVPB ONE (07:59)
[2019-03-02] MEDS: cloNIDine HCl 0.1 MG TABLET PO SCH ×2 (09:44→20:08)
[2019-03-02] MEDS: Famotidine 20 MG TABLET PO SCH (20:07)
[2019-03-03 04:00] LABS: BUN/Creatinine Ratio 27 (6-26); Blood Urea Nitrogen 27 mg/dL (8-23); Calcium 9.2 mg/dL (8.6-10.3); Carbon Dioxide 24 mEq/L (23-29); Chloride 109 mEq/L (98-107); Glucose 104 mg/dL (70-105); Magnesium 2.1 mg/dL (1.6-2.6); Osmolality,Calculated 299 (280-300); Phosphorous 3.8 mg/dL (2.7-4.5); Potassium 3.8 mEq/L (3.5-5.1); Sodium 142 mEq/L (136-145); eGFR For African Americans > 60 (> 60); eGFR For Non-African Americans 55 (> 60)
[2019-03-03] MEDS: Levothyroxine Sodium 100 MCG VIAL IVP SCH (05:39)
[2019-03-03] MEDS: *HR* Heparin 5,000 UNIT/ML VIAL SQ SCH ×2 (05:45→17:40)
[2019-03-03] MEDS: amLODIPine 5 MG TABLET PO SCH (07:56)
[2019-03-03] MEDS: levoFLOXacin 750 MG/150 ML 750 MG/150 ML BAG IVPB SCH (07:56)
[2019-03-03] MEDS: cloNIDine HCl 0.1 MG TABLET PO SCH ×2 (07:56→20:58)
[2019-03-03] MEDS: hydrALAZINE 25 MG TABLET PO SCH ×2 (07:57→17:40)
[2019-03-03] MEDS: Aspirin Enteric Coated 81 MG Tablet PO SCH (07:57)
[2019-03-03] MEDS: rOPINIRole 1 MG TABLET PO SCH ×2 (07:57→20:58)
[2019-03-03] MEDS: Valbenazine Tosylate [Ingrezza] 80 MG PO SCH (08:18)
[2019-03-03] MEDS: MetroNIDAZOLE 500 MG/100 ML 500 MG/100 ML BAG IVPB SCH ×2 (13:45→17:34)
[2019-03-03 15:04] LABS: Bilirubin,Urine Negative (Negative); Blood,Urine Negative (Negative); Clarity,Urine Clear (Clear); Color,Urine Yellow (Yellow); Glucose,Urine (UA) Normal (Normal); Ketones,Urine Trace mg/dL (Negative); Leukocyte Esterase,Urine Negative (Negative); Nitrite,Urine Negative (Negative); PH,Urine 5.5 pH Units (5.0-8.0); Protein,Urine Trace mg/dL (Neg-Trace); Specific Gravity,Urine > 1.030 (1.010-1.025); Urobilinogen,Urine Normal (Normal)
[2019-03-03] MEDS ORDERED: levoFLOXacin 750 MG/150 ML 750 MG/150 ML BAG IVPB SCH (18:00)
[2019-03-03] MEDS: Famotidine 20 MG TABLET PO SCH (20:58)
[2019-03-04] MEDS: hydrALAZINE 25 MG TABLET PO SCH ×3 (00:12→15:47)
[2019-03-04] MEDS: MetroNIDAZOLE 500 MG/100 ML 500 MG/100 ML BAG IVPB SCH ×3 (00:16→15:47)
[2019-03-04] MEDS: *HR* Heparin 5,000 UNIT/ML VIAL SQ SCH ×2 (06:34→18:48)
[2019-03-04] MEDS: Levothyroxine Sodium 100 MCG VIAL IVP SCH (06:34)
[2019-03-04] MEDS: Aspirin Enteric Coated 81 MG Tablet PO SCH (10:10)
[2019-03-04] MEDS: rOPINIRole 1 MG TABLET PO SCH (10:10)
[2019-03-04] MEDS: cloNIDine HCl 0.1 MG TABLET PO SCH (10:10)
[2019-03-04] MEDS: amLODIPine 5 MG TABLET PO SCH (10:10)
[2019-03-04] MEDS: Valbenazine Tosylate [Ingrezza] 80 MG PO SCH (10:11)
[2019-03-04 12:16] VITALS: BP 130/84
[2019-03-05] MEDS ORDERED: levoFLOXacin 750 MG/150 ML 750 MG/150 ML BAG IVPB SCH (08:00)
== END 2019-03-04 19:04 | DRG 177 ==
LOC: 2NENU 16:32 → EMEROOARM 16:32 → SUATTDRO 21:15 → 2NENU 21:57 → SUATTDRO 02-26 12:22
PROVIDERS: ADMIT Internal Medicine; ATTEND Internal Medicine

== ENCOUNTER 2019-04-16 17:39 | Inpatient (IN) ==
[2019-04-16 20:16] LABS: Basophils % 0.7 %; Eosinophils # 0.2 K/mcL (0.0-0.6); Eosinophils % 4.1 %; Hemoglobin 11.4 g/dL (11.5-15.4); Immature Granulocytes % 0.2 % (0-4); Lymphocytes # 1.1 K/mcL (0.6-4.6); Lymphocytes % 19.2 %; Mean Corpuscular HGB Conc 34.5 g/dL (31.6-35.5); Mean Corpuscular Hemoglobin 30.4 pg (28.0-33.3); Mean Platelet Volume 11.5 fL (9.4-12.4); Monocytes # 0.7 K/mcL (0.0-1.3); Monocytes % 11.9 %; Neutrophils # 3.7 K/mcL (1.6-8.9); Platelet Count 158 K/mcL (140-400); Red Blood Count 3.75 M/mcL (3.82-4.97); Red Cell Distribution Width 13.4 % (11.5-14.5); Segmented Neutrophils % 63.9 %; White Blood Count 5.8 K/mcL (4.3-11.1)
[2019-04-16 20:29] LABS: INR 1.1; Prothrombin Time 12.7 Seconds (9.4-12.1)
[2019-04-16 20:32] LABS: Activated Partial Thrombo Time 29.3 Seconds (26.0-36.0)
[2019-04-16 20:35] LABS: Albumin 4.2 g/dL (3.5-5.7); Albumin/Globulin Ratio 1.4 (1.1-2.2); Bilirubin,Direct 0.1 mg/dL (0.0-0.2); Bilirubin,Indirect 0.4 mg/dL (0.0-1.0); Bilirubin,Total 0.5 mg/dL (0.3-1.0); Total Protein 7.2 g/dL (6.4-8.9)
[2019-04-16 20:37] LABS: BUN/Creatinine Ratio 19 (6-26); Blood Urea Nitrogen 23 mg/dL (8-23); Calcium 10.5 mg/dL (8.6-10.3); Carbon Dioxide 26 mEq/L (23-29); Chloride 100 mEq/L (98-107); Glucose 93 mg/dL (70-105); Osmolality,Calculated 285 (280-300); Potassium 4.2 mEq/L (3.5-5.1); Sodium 136 mEq/L (136-145); Troponin I < 0.03 ng/mL (< 0.04); eGFR For African Americans 55 (> 60); eGFR For Non-African Americans 45 (> 60)
[2019-04-16 20:53] LABS: Bilirubin,Urine Negative (Negative); Blood,Urine Small (Negative); Clarity,Urine Cloudy (Clear); Color,Urine Yellow (Yellow); Glucose,Urine (UA) Normal (Normal); Ketones,Urine Negative (Negative); Leukocyte Esterase,Urine Large (Negative); Nitrite,Urine Negative (Negative); Protein,Urine Trace mg/dL (Neg-Trace); Specific Gravity,Urine 1.017 (1.010-1.025); Urobilinogen,Urine Normal (Normal)
[2019-04-16 20:55] LABS: Bacteria,Urine Many per hpf (None-Few); Squamous Epithelial Cell,Urine Moderate per lpf (None-Few); WBC,Urine TNTC per hpf (0-3)
[2019-04-16] MEDS ORDERED: cephALEXin 250 MG CAPSULE PO ONE (21:11)
[2019-04-16] MEDS ORDERED: 0.9 % Sodium Chloride 1,000 ML IV ONE (21:11)
[2019-04-16] MEDS ORDERED: CefTRIAXone 1,000 MG VIAL IM ONE (21:28)
[2019-04-16] MEDS ORDERED: cefTRIAXone 1,000 MG in Water for inj. (sterile) 10 ML IVP ONE (22:00)
[2019-04-16] MEDS ORDERED: Ondansetron 4 MG/2 ML VIAL IVP PRN (22:25)
[2019-04-16] MEDS ORDERED: Famotidine 20 MG/2 ML VIAL IVP ONE (22:26)
[2019-04-17] MEDS ORDERED: Ringers Solution, Lactated 1,000 ML IVC SCH (00:30)
[2019-04-17] MEDS ORDERED: Bismuth Subsalicylate 120 ML ORAL SUSPENSION PO PRN (00:35)
[2019-04-17] MEDS ORDERED: MOM Conc 10 ML UD.LIQ PO PRN (00:35)
[2019-04-17] MEDS ORDERED: Chloraseptic Spray 177 ML BOTTLE MM PRN (00:35)
[2019-04-17] MEDS: Docusate Oral Soln 100 MG/10 ML UDC PO SCH ×3 (00:40→20:04)
[2019-04-17] MEDS: levETIRAcetam 250 MG TABLET PO SCH ×2 (01:03→13:14)
[2019-04-17] MEDS: Levothyroxine 25 MCG TABLET PO SCH (05:39)
[2019-04-17] MEDS: Vitamin E 200 UNIT (90MG) CAPSULE PO SCH (09:27)
[2019-04-17] MEDS: rOPINIRole 1 MG TABLET PO SCH ×2 (09:27→20:04)
[2019-04-17] MEDS: cloNIDine HCl 0.1 MG TABLET PO SCH ×2 (09:27→20:04)
[2019-04-17] MEDS: Cholecalciferol (D-3) 1,000 UNIT (25MCG) TABLET PO SCH (09:28)
[2019-04-17] MEDS: Perphenazine 2 MG TABLET PO SCH ×2 (09:33→15:29)
[2019-04-17] MEDS: Aspirin Enteric Coated 81 MG Tablet PO SCH (09:33)
[2019-04-17] MEDS: cefTRIAXone 1,000 MG in Water for inj. (sterile) 10 ML IVPB SCH (17:03)
[2019-04-17] MEDS: *HR* Heparin 5,000 UNIT/ML VIAL SQ SCH (17:04)
[2019-04-18] MEDS: Perphenazine 2 MG TABLET PO SCH ×4 (00:17→22:37)
[2019-04-18] MEDS: levETIRAcetam 250 MG TABLET PO SCH ×2 (00:17→12:55)
[2019-04-18] MEDS: Levothyroxine 25 MCG TABLET PO SCH (04:58)
[2019-04-18] MEDS: *HR* Heparin 5,000 UNIT/ML VIAL SQ SCH ×2 (05:02→18:52)
[2019-04-18] MEDS ORDERED: *HR* Propofol 200 MG/20 ML VIAL IVP ONE (07:13)
[2019-04-18] MEDS ORDERED: Lidocaine -MPF 2% 2 ML VIAL ONE (07:13)
[2019-04-18 07:23] LABS: BUN/Creatinine Ratio 22 (6-26); Blood Urea Nitrogen 22 mg/dL (8-23); Calcium 9.6 mg/dL (8.6-10.3); Carbon Dioxide 27 mEq/L (23-29); Chloride 100 mEq/L (98-107); Glucose 94 mg/dL (70-105); Osmolality,Calculated 291 (280-300); Potassium 3.5 mEq/L (3.5-5.1); Sodium 139 mEq/L (136-145); eGFR For African Americans > 60 (> 60); eGFR For Non-African Americans 55 (> 60)
[2019-04-18] MEDS: 0.9 % Sodium Chloride 1,000 ML IVC SCH (09:28)
[2019-04-18] MEDS: Docusate Oral Soln 100 MG/10 ML UDC PO SCH ×2 (12:54→22:35)
[2019-04-18] MEDS: Aspirin Enteric Coated 81 MG Tablet PO SCH (12:55)
[2019-04-18] MEDS: Cholecalciferol (D-3) 1,000 UNIT (25MCG) TABLET PO SCH (12:55)
[2019-04-18] MEDS: Vitamin E 200 UNIT (90MG) CAPSULE PO SCH (12:55)
[2019-04-18] MEDS: rOPINIRole 1 MG TABLET PO SCH ×2 (12:55→22:35)
[2019-04-18] MEDS: cloNIDine HCl 0.1 MG TABLET PO SCH ×2 (12:55→22:35)
[2019-04-18] MEDS: Valbenazine Tosylate [Ingrezza] 80 MG PO SCH (12:57)
[2019-04-18] MEDS: cefTRIAXone 1,000 MG in Water for inj. (sterile) 10 ML IVPB SCH (18:52)
[2019-04-19] MEDS: levETIRAcetam 250 MG TABLET PO SCH ×2 (01:10→16:51)
[2019-04-19] MEDS: Levothyroxine 25 MCG TABLET PO SCH (06:19)
[2019-04-19] MEDS: *HR* Heparin 5,000 UNIT/ML VIAL SQ SCH (06:22)
[2019-04-19] MEDS: 0.9 % Sodium Chloride 1,000 ML IVC SCH (06:26)
[2019-04-19] MEDS: cloNIDine HCl 0.1 MG TABLET PO SCH (11:08)
[2019-04-19] MEDS: Aspirin Enteric Coated 81 MG Tablet PO SCH (11:08)
[2019-04-19] MEDS: Vitamin E 200 UNIT (90MG) CAPSULE PO SCH (11:08)
[2019-04-19] MEDS: Cholecalciferol (D-3) 1,000 UNIT (25MCG) TABLET PO SCH (11:08)
[2019-04-19] MEDS: Docusate Oral Soln 100 MG/10 ML UDC PO SCH (11:08)
[2019-04-19] MEDS: rOPINIRole 1 MG TABLET PO SCH (11:09)
[2019-04-19] MEDS: Perphenazine 2 MG TABLET PO SCH ×2 (11:11→16:51)
[2019-04-19] MEDS: Valbenazine Tosylate [Ingrezza] 80 MG PO SCH (11:16)
[2019-04-19 16:51] VITALS: BP 131/85
== END 2019-04-19 18:16 | disposition home or self-care (01) | DRG 690 ==
LOC: 3BNU 17:39 → EMEROOARM 17:39 → 3BNU 23:40 → SUATTDRO 04-17 17:55
PROVIDERS: ADMIT Internal Medicine; ATTEND Student in an Organized Health Care Education/Training Program
PROC: ENDOEDS (2019-04-18 17:30)

== ENCOUNTER 2019-04-27 14:14 | Inpatient (IN) ==
[2019-04-27 15:45] LABS: Basophils % 0.2 %; Eosinophils % 0.8 %; Hematocrit 30.6 % (35.3-44.9); Hemoglobin 10.6 g/dL (11.5-15.4); Immature Granulocytes % 0.2 % (0-4); Lymphocytes # 0.4 K/mcL (0.6-4.6); Lymphocytes % 7.3 %; Mean Corpuscular HGB Conc 34.6 g/dL (31.6-35.5); Mean Corpuscular Hemoglobin 30.7 pg (28.0-33.3); Mean Corpuscular Volume 88.7 fL (83.0-100.0); Mean Platelet Volume 10.9 fL (9.4-12.4); Monocytes # 0.3 K/mcL (0.0-1.3); Monocytes % 5.8 %; Neutrophils # 4.6 K/mcL (1.6-8.9); Platelet Count 148 K/mcL (140-400); Red Blood Count 3.45 M/mcL (3.82-4.97); Red Cell Distribution Width 13.9 % (11.5-14.5); Segmented Neutrophils % 85.7 %; White Blood Count 5.3 K/mcL (4.3-11.1)
[2019-04-27 15:52] LABS: INR 1.2; Prothrombin Time 13.1 Seconds (9.4-12.1)
[2019-04-27 16:06] LABS: Alanine Aminotransferase 26 Units/L (7-52); Albumin 3.7 g/dL (3.5-5.7); Albumin/Globulin Ratio 1.4 (1.1-2.2); Alkaline Phosphatase 39 Units/L (34-104); Aspartate Amino Transferase 22 Units/L (13-39); BUN/Creatinine Ratio 28 (6-26); Bilirubin,Total 0.5 mg/dL (0.3-1.0); Blood Urea Nitrogen 31 mg/dL (8-23); Carbon Dioxide 23 mEq/L (23-29); Chloride 107 mEq/L (98-107); Globulin 2.6 g/dL (2.4-3.5); Glucose 107 mg/dL (70-105); Osmolality,Calculated 295 (280-300); Potassium 3.8 mEq/L (3.5-5.1); Sodium 139 mEq/L (136-145); Total Protein 6.3 g/dL (6.4-8.9); eGFR For African Americans 58 (> 60); eGFR For Non-African Americans 48 (> 60)
[2019-04-27 16:07] LABS: Troponin I < 0.03 ng/mL (< 0.04)
[2019-04-27 16:16] LABS: Bilirubin,Urine Negative (Negative); Blood,Urine Negative (Negative); Clarity,Urine Clear (Clear); Color,Urine Yellow (Yellow); Glucose,Urine (UA) Normal (Normal); Ketones,Urine Negative (Negative); Leukocyte Esterase,Urine Small (Negative); Nitrite,Urine Negative (Negative); PH,Urine 5.5 pH Units (5.0-8.0); Protein,Urine Negative (Neg-Trace); Specific Gravity,Urine 1.022 (1.010-1.025); Urobilinogen,Urine Normal (Normal)
[2019-04-27 16:18] LABS: Bacteria,Urine Few per hpf (None-Few); Hyaline Casts,Urine Few per lpf (None-Few); RBC,Urine 0-3 per hpf (0-3); Squamous Epithelial Cell,Urine Many per lpf (None-Few)
[2019-04-27] MEDS ORDERED: cefTRIAXone 1,000 MG in 0.9 % Sodium Chloride Mini Bag 100 ML IVPB ONE (16:33)
[2019-04-27] MEDS ORDERED: cefTRIAXone 1,000 MG in Water for inj. (sterile) 10 ML IVP ONE (16:45)
[2019-04-27] MEDS ORDERED: Naloxone 0.4 MG/ML INJ IVP PRN (17:41)
[2019-04-27] MEDS ORDERED: Ondansetron 4 MG/2 ML VIAL IVP PRN (17:41)
[2019-04-27] MEDS ORDERED: Chloraseptic Spray 177 ML BOTTLE MM PRN (17:54)
[2019-04-27] MEDS ORDERED: 0.9 % Sodium Chloride 1,000 ML IVC SCH (18:00)
[2019-04-27] MEDS: rOPINIRole 1 MG TABLET PO SCH (22:47)
[2019-04-27] MEDS: levETIRAcetam 250 MG TABLET PO SCH (22:47)
[2019-04-27] MEDS: cloNIDine HCl 0.1 MG TABLET PO SCH (22:48)
[2019-04-27] MEDS: Perphenazine 2 MG TABLET PO SCH (22:49)
[2019-04-28] MEDS: levETIRAcetam 250 MG TABLET PO SCH ×2 (05:57→18:33)
[2019-04-28] MEDS: Levothyroxine 25 MCG TABLET PO SCH (05:57)
[2019-04-28 06:58] LABS: Basophils % 0.2 %; Eosinophils # 0.1 K/mcL (0.0-0.6); Eosinophils % 1.6 %; Hematocrit 29.2 % (35.3-44.9); Hemoglobin 9.9 g/dL (11.5-15.4); Immature Granulocytes % 0.5 % (0-4); Lymphocytes # 0.7 K/mcL (0.6-4.6); Lymphocytes % 16.6 %; Mean Corpuscular HGB Conc 33.9 g/dL (31.6-35.5); Mean Corpuscular Hemoglobin 30.5 pg (28.0-33.3); Mean Corpuscular Volume 89.8 fL (83.0-100.0); Mean Platelet Volume 10.8 fL (9.4-12.4); Monocytes # 0.5 K/mcL (0.0-1.3); Monocytes % 10.5 %; Neutrophils # 3.1 K/mcL (1.6-8.9); Platelet Count 135 K/mcL (140-400); Red Blood Count 3.25 M/mcL (3.82-4.97); Red Cell Distribution Width 14.1 % (11.5-14.5); Segmented Neutrophils % 70.6 %; White Blood Count 4.4 K/mcL (4.3-11.1)
[2019-04-28 07:19] LABS: Calcium 8.6 mg/dL (8.6-10.3); Potassium 3.6 mEq/L (3.5-5.1)
[2019-04-28] MEDS: Vitamin E 200 UNIT (90MG) CAPSULE PO SCH (09:51)
[2019-04-28] MEDS: Perphenazine 2 MG TABLET PO SCH ×3 (09:52→20:45)
[2019-04-28] MEDS: Aspirin Enteric Coated 81 MG Tablet PO SCH (09:52)
[2019-04-28] MEDS: rOPINIRole 1 MG TABLET PO SCH ×2 (09:52→20:42)
[2019-04-28] MEDS: Cholecalciferol (D-3) 1,000 UNIT (25MCG) TABLET PO SCH (09:52)
[2019-04-28] MEDS: (Valbenazine Tosylate [Ingrezza] 80 MG) PO SCH (09:52)
[2019-04-28] MEDS: cloNIDine HCl 0.1 MG TABLET PO SCH ×2 (09:52→20:42)
[2019-04-28] MEDS: metroNIDAZOLE 500 MG TABLET PO SCH ×2 (16:09→20:42)
[2019-04-28] MEDS: cefTRIAXone 2,000 MG in Water for inj. (sterile) 20 ML IVP SCH (18:32)
[2019-04-29] MEDS: Levothyroxine 25 MCG TABLET PO SCH (04:57)
[2019-04-29] MEDS: levETIRAcetam 250 MG TABLET PO SCH ×2 (04:57→20:04)
[2019-04-29 05:09] LABS: Hematocrit 29.2 % (35.3-44.9); Mean Corpuscular HGB Conc 34.2 g/dL (31.6-35.5); Mean Corpuscular Hemoglobin 30.3 pg (28.0-33.3); Mean Corpuscular Volume 88.5 fL (83.0-100.0); Mean Platelet Volume 10.9 fL (9.4-12.4); Platelet Count 139 K/mcL (140-400); Red Cell Distribution Width 13.7 % (11.5-14.5)
[2019-04-29 05:30] LABS: BUN/Creatinine Ratio 25 (6-26); Blood Urea Nitrogen 22 mg/dL (8-23); Calcium 8.4 mg/dL (8.6-10.3); Carbon Dioxide 23 mEq/L (23-29); Chloride 109 mEq/L (98-107); Glucose 86 mg/dL (70-105); Osmolality,Calculated 291 (280-300); Potassium 3.5 mEq/L (3.5-5.1); Sodium 139 mEq/L (136-145); eGFR For African Americans > 60 (> 60); eGFR For Non-African Americans > 60 (> 60)
[2019-04-29] MEDS: Vitamin E 200 UNIT (90MG) CAPSULE PO SCH (08:09)
[2019-04-29] MEDS: Cholecalciferol (D-3) 1,000 UNIT (25MCG) TABLET PO SCH (08:09)
[2019-04-29] MEDS: Aspirin Enteric Coated 81 MG Tablet PO SCH (08:09)
[2019-04-29] MEDS: cloNIDine HCl 0.1 MG TABLET PO SCH ×2 (08:09→21:08)
[2019-04-29] MEDS: rOPINIRole 1 MG TABLET PO SCH ×2 (08:09→21:08)
[2019-04-29] MEDS: Perphenazine 2 MG TABLET PO SCH ×3 (08:09→23:03)
[2019-04-29] MEDS: metroNIDAZOLE 500 MG TABLET PO SCH ×3 (08:09→21:08)
[2019-04-29] MEDS: (Valbenazine Tosylate [Ingrezza] 80 MG) PO SCH (08:10)
[2019-04-29] MEDS: cefTRIAXone 2,000 MG in Water for inj. (sterile) 20 ML IVP SCH (20:04)
[2019-04-29] MEDS ORDERED: Famotidine 20 MG TABLET PO SCH (21:00)
[2019-04-29] MEDS: Famotidine 20 MG TABLET PO SCH (21:07)
[2019-04-30] MEDS: Levothyroxine 25 MCG TABLET PO SCH (05:29)
[2019-04-30] MEDS: levETIRAcetam 250 MG TABLET PO SCH ×2 (05:31→18:50)
[2019-04-30] MEDS ORDERED: Cefepime HCl 1,000 MG in 0.9 % Sodium Chloride Mini Bag 100 ML IVPB SCH (07:47)
[2019-04-30] MEDS: Cefepime HCl 1,000 MG in Water for inj. (sterile) 10 ML IVP SCH ×2 (08:40→18:49)
[2019-04-30] MEDS: rOPINIRole 1 MG TABLET PO SCH ×2 (09:04→20:36)
[2019-04-30] MEDS: cloNIDine HCl 0.1 MG TABLET PO SCH ×2 (09:04→20:36)
[2019-04-30] MEDS: Cholecalciferol (D-3) 1,000 UNIT (25MCG) TABLET PO SCH (09:04)
[2019-04-30] MEDS: metroNIDAZOLE 500 MG TABLET PO SCH ×3 (09:04→20:36)
[2019-04-30] MEDS: Vitamin E 200 UNIT (90MG) CAPSULE PO SCH (09:04)
[2019-04-30] MEDS: Aspirin Enteric Coated 81 MG Tablet PO SCH (09:05)
[2019-04-30] MEDS: Perphenazine 2 MG TABLET PO SCH ×3 (09:19→20:38)
[2019-04-30] MEDS: (Valbenazine Tosylate [Ingrezza] 80 MG) PO SCH (09:25)
[2019-04-30 18:09] LABS: Hematocrit 32.3 % (35.3-44.9); Hemoglobin 11.1 g/dL (11.5-15.4); Mean Corpuscular HGB Conc 34.4 g/dL (31.6-35.5); Mean Corpuscular Hemoglobin 30.7 pg (28.0-33.3); Mean Corpuscular Volume 89.2 fL (83.0-100.0); Mean Platelet Volume 10.7 fL (9.4-12.4); Platelet Count 160 K/mcL (140-400); Red Blood Count 3.62 M/mcL (3.82-4.97); Red Cell Distribution Width 13.2 % (11.5-14.5); White Blood Count 4.9 K/mcL (4.3-11.1)
[2019-04-30 18:31] LABS: BUN/Creatinine Ratio 26 (6-26); Blood Urea Nitrogen 24 mg/dL (8-23); Carbon Dioxide 20 mEq/L (23-29); Chloride 105 mEq/L (98-107); Glucose 101 mg/dL (70-105); Magnesium 1.9 mg/dL (1.6-2.6); Osmolality,Calculated 290 (280-300); Potassium 3.5 mEq/L (3.5-5.1); Sodium 138 mEq/L (136-145); eGFR For African Americans > 60 (> 60); eGFR For Non-African Americans 59 (> 60)
[2019-04-30] MEDS: Famotidine 20 MG TABLET PO SCH (20:36)
[2019-05-01] MEDS: Cefepime HCl 1,000 MG in Water for inj. (sterile) 10 ML IVP SCH (05:29)
[2019-05-01] MEDS: levETIRAcetam 250 MG TABLET PO SCH (05:29)
[2019-05-01] MEDS: Levothyroxine 25 MCG TABLET PO SCH (05:30)
[2019-05-01 07:41] VITALS: BP 206/65
[2019-05-01] MEDS: metroNIDAZOLE 500 MG TABLET PO SCH (07:53)
[2019-05-01] MEDS: cloNIDine HCl 0.1 MG TABLET PO SCH (07:53)
[2019-05-01] MEDS: Vitamin E 200 UNIT (90MG) CAPSULE PO SCH (07:53)
[2019-05-01] MEDS: rOPINIRole 1 MG TABLET PO SCH (07:55)
[2019-05-01] MEDS: (Valbenazine Tosylate [Ingrezza] 80 MG) PO SCH (07:55)
[2019-05-01] MEDS: Aspirin Enteric Coated 81 MG Tablet PO SCH (07:55)
[2019-05-01] MEDS: Cholecalciferol (D-3) 1,000 UNIT (25MCG) TABLET PO SCH (07:56)
[2019-05-01] MEDS: Perphenazine 2 MG TABLET PO SCH (08:03)
== END 2019-05-01 14:21 | disposition home or self-care (01) | DRG 689 ==
LOC: 3ANU 14:14 → EMEROOARM 14:14 → SUATTDRO 17:27 → 3ANU 18:55
PROVIDERS: ADMIT Internal Medicine; ATTEND Internal Medicine

== ENCOUNTER 2019-06-30 16:56 | Inpatient (IN) ==
[2019-06-30 17:35] LABS: Hematocrit 31.1 % (35.3-44.9); Hemoglobin 10.3 g/dL (11.5-15.4); Mean Corpuscular HGB Conc 33.1 g/dL (31.6-35.5); Mean Corpuscular Hemoglobin 31.3 pg (28.0-33.3); Mean Corpuscular Volume 94.5 fL (83.0-100.0); Mean Platelet Volume 10.6 fL (9.4-12.4); Platelet Count 155 K/mcL (140-400); Red Blood Count 3.29 M/mcL (3.82-4.97); Red Cell Distribution Width 12.6 % (11.5-14.5); White Blood Count 6.2 K/mcL (4.3-11.1)
[2019-06-30 17:42] LABS: INR 1.1
[2019-06-30 17:56] LABS: BUN/Creatinine Ratio 25 (6-26); Blood Urea Nitrogen 29 mg/dL (8-23); Carbon Dioxide 27 mEq/L (23-29); Chloride 102 mEq/L (98-107); Glucose 92 mg/dL (70-105); Osmolality,Calculated 287 (280-300); Potassium 3.9 mEq/L (3.5-5.1); Sodium 136 mEq/L (136-145); Troponin I < 0.03 ng/mL (< 0.04); eGFR For African Americans 56 (> 60); eGFR For Non-African Americans 46 (> 60)
[2019-06-30] MEDS ORDERED: Aspirin 325 MG TABLET PO ONE (18:24)
[2019-07-01 01:58] LABS: Bilirubin,Urine Negative (Negative); Blood,Urine Negative (Negative); Clarity,Urine Clear (Clear); Color,Urine Yellow (Yellow); Glucose,Urine (UA) Normal (Normal); Ketones,Urine Negative (Negative); Leukocyte Esterase,Urine Negative (Negative); Nitrite,Urine Negative (Negative); Protein,Urine Negative (Neg-Trace); Specific Gravity,Urine 1.017 (1.010-1.025); Urobilinogen,Urine Normal (Normal)
[2019-07-01] MEDS ORDERED: Chloraseptic Spray 177 ML BOTTLE MM PRN (05:34)
[2019-07-01 05:43] LABS: Hematocrit 29.9 % (35.3-44.9); Mean Corpuscular HGB Conc 33.4 g/dL (31.6-35.5); Mean Corpuscular Hemoglobin 31.4 pg (28.0-33.3); Mean Platelet Volume 10.9 fL (9.4-12.4); Platelet Count 147 K/mcL (140-400); Red Blood Count 3.18 M/mcL (3.82-4.97); Red Cell Distribution Width 12.5 % (11.5-14.5); White Blood Count 5.7 K/mcL (4.3-11.1)
[2019-07-01 05:45] LABS: INR 1.1; Prothrombin Time 12.6 Seconds (9.4-12.1)
[2019-07-01] MEDS: *HR* Heparin 5,000 UNIT/ML VIAL SQ SCH ×3 (05:49→21:09)
[2019-07-01 06:07] LABS: BUN/Creatinine Ratio 24 (6-26); Blood Urea Nitrogen 28 mg/dL (8-23); Calcium 9.6 mg/dL (8.6-10.3); Carbon Dioxide 25 mEq/L (23-29); Chloride 105 mEq/L (98-107); Chol/HDL Ratio 3.5 (0-4.9); Cholesterol 158 mg/dL (< 200); Glucose 97 mg/dL (70-105); HDL Cholesterol 45 mg/dL (40-59); LDL Cholesterol,Calculated 90 mg/dL (0-99); Osmolality,Calculated 291 (280-300); Potassium 3.6 mEq/L (3.5-5.1); Sodium 138 mEq/L (136-145); Triglycerides 117 mg/dL (< 150); Troponin I < 0.03 ng/mL (< 0.04); eGFR For African Americans 54 (> 60); eGFR For Non-African Americans 45 (> 60)
[2019-07-01 07:17] LABS: Estimated Average Glucose 111 mg/dl
[2019-07-01] MEDS ORDERED: Famotidine 20 MG TABLET PO SCH (21:00)
[2019-07-01] MEDS: cloNIDine HCL 0.1 MG TABLET PO SCH (21:09)
[2019-07-01] MEDS: Perphenazine 2 MG TABLET PO SCH (21:10)
[2019-07-02] MEDS: *HR* Heparin 5,000 UNIT/ML VIAL SQ SCH (05:34)
[2019-07-02 05:57] LABS: Hematocrit 28.9 % (35.3-44.9); Hemoglobin 9.8 g/dL (11.5-15.4); Mean Corpuscular HGB Conc 33.9 g/dL (31.6-35.5); Mean Corpuscular Hemoglobin 31.8 pg (28.0-33.3); Mean Corpuscular Volume 93.8 fL (83.0-100.0); Mean Platelet Volume 10.8 fL (9.4-12.4); Platelet Count 147 K/mcL (140-400); Red Blood Count 3.08 M/mcL (3.82-4.97); Red Cell Distribution Width 12.9 % (11.5-14.5); White Blood Count 5.4 K/mcL (4.3-11.1)
[2019-07-02 06:17] LABS: BUN/Creatinine Ratio 21 (6-26); Blood Urea Nitrogen 20 mg/dL (8-23); Carbon Dioxide 24 mEq/L (23-29); Chloride 107 mEq/L (98-107); Glucose 90 mg/dL (70-105); Osmolality,Calculated 290 (280-300); Potassium 3.9 mEq/L (3.5-5.1); Sodium 139 mEq/L (136-145); eGFR For African Americans > 60 (> 60); eGFR For Non-African Americans 57 (> 60)
[2019-07-02] MEDS ORDERED: Levothyroxine 25 MCG TABLET PO SCH (06:30)
[2019-07-02] MEDS: Perphenazine 2 MG TABLET PO SCH (08:22)
[2019-07-02] MEDS: cloNIDine HCL 0.1 MG TABLET PO SCH (08:22)
[2019-07-02] MEDS ORDERED: (Valbenazine Tosylate [Ingrezza] 80 MG) PO SCH (09:00)
[2019-07-02] MEDS ORDERED: Aspirin Enteric Coated 81 MG Tablet PO SCH (09:00)
[2019-07-02] MEDS ORDERED: lisinopriL 10 MG TABLET PO SCH (09:00)
[2019-07-02 10:44] VITALS: BP 171/70
== END 2019-07-02 14:47 | disposition home health service (06) | DRG 91 ==
LOC: EMEROOARM 16:56 → 3BNU 16:56
PROVIDERS: ADMIT Internal Medicine; ATTEND Internal Medicine